=== PATIENT | male | born 1960 | race American Indian/Alaskan Native ===

== ENCOUNTER 2017-08-05 17:28 | Inpatient (IN) | payer MEDICARE, MEDICAID ==
[2017-08-05] MEDS ORDERED: Sodium Chloride 0.9% 1,000 ML IV ONE (18:17)
--- NOTE | 2017-08-05 18:24 | C.PDOC ---
History Of Present Illness <Alice Hoover E - Last Filed: 08/05/17 18:39> <Sabino Desai M - Last Filed: 08/05/17 19:00> Patient is a poor historian Patient is a 57 year old AA with unknown past medical history who presents to the ED via ambulance from a snf with complaints of not feeling well for the past 4 days. Patient admits to headache, visual hallucinations (cannot describe fully what he sees), generalized body shakiness and chills. Patient denies subjective fever, chest pain, palpitations, abdominal pain, nausea and vomiting. Patient is oriented to place, location, date but not year and who the current president is. (Alice Hoover) History Per: Patient History/Exam Limitations: no limitations Onset/Duration Of Symptoms: Days Current Symptoms Are (Timing): Still Present Severity: Mild Pain Scale Rating Of: 0 Additional History Per: Patient <Alice Hoover E - Last Filed: 08/05/17 18:39> <Sabino Desai M - Last Filed: 08/05/17 19:00> Time Seen by Provider: 08/05/17 17:44 Chief Complaint (Nursing): Fever Past Medical History - Medical History PMH: HTN Other Surgeries: S/p SBO surgery 05/2016 Family History: States: Unknown Family Hx - Social History Hx Alcohol Use: No Hx Substance Use: No - Immunization History Hx Influenza Vaccination: No (UNSURE) <Alice Hoover E - Last Filed: 08/05/17 18:39> Vital Signs: Last Vital Signs Temp 103.2 F H 08/05/17 18:25 Pulse 127 H 08/05/17 18:11 Resp 26 H 08/05/17 18:11 BP 135/85 08/05/17 18:11 Pulse Ox 98 08/05/17 18:40 Review Of Systems Constitutional: Positive for: Chills, Malaise Cardiovascular: Negative for: Palpitations, Light Headedness Respiratory: Negative for: Cough, Shortness of Breath, SOB with Excertion Gastrointestinal: Negative for: Nausea, Vomiting, Abdominal Pain, Diarrhea Genitourinary: Negative for: Dysuria, Rash Neurological: Positive for: Confusion, Altered Mental Status <Alice Hoover - Last Filed: 08/05/17 18:39> Physical Exam - Physical Exam Appears: Unkempt, Confused Skin: Normal Color, Dry, No Diaphoretic Head: Atraumatic, Normacephalic Eye(s): bilateral: EOMI Lips: Normal Appearing Cardiovascular: Rhythm Regular (Tacycardia) Respiratory: Normal Breath Sounds, No Decreased Breath Sounds, No Accessory Muscle Use, No Rales, No Rhonchi, Other (poor expiratory and inspiratory effort ) Gastrointestinal/Abdominal: Bowel Sounds, Soft, No Tenderness Back: No CVA Tenderness Extremity: No Tenderness, No Pedal Edema, No Calf Tenderness, No Swelling Extremity: Bilateral: No Pedal Edema, Normal Color And Temperature Pulses: Left Dorsalis Pedis: Normal, Right Dorsalis Pedis: Normal Neurological/Psych: No Oriented x3, Normal Speech Disoriented To: Place <Alice Hoover - Last Filed: 08/05/17 18:39> ED Course And Treatment - Laboratory Results Result Diagrams: 08/05/17 18:29 ECG Rhythm: Sinus Tachycardia Interpretation Of ECG: Minimal voltage criteria for LVH, may be normal variant Rate From EC O2 Sat by Pulse Oximetry: 98 <Alice Hoover - Last Filed: 08/05/17 18:39> - Laboratory Results Result Diagrams: 08/05/17 18:29 08/05/17 18:29 <Sabino Desai - Last Filed: 08/05/17 19:00> Medical Decision Making <Alice Hoover E - Last Filed: 08/05/17 18:39> <Sabino Desai M - Last Filed: 08/05/17 19:00> Medical Decision Making: Meet SIRS criteria * F/u blood culture, urine culture, UA, procalcitonin, ammonia, VBG and rapid influenza, CBC, CMP * F/u chest X-ray and CT abdomen/Pelvis IV contrast * F/u UDS, serum alcohol (Alice Hoover) fever with hx of bowel obstruction, although abdomen is soft, nt, it distended with hypoactive bowel sounds, will order ct abd/pelvis. Case s/o to Dr. Kay at 1900 (Sabino Desai) Disposition - Disposition Disposition Time: 18:40 <Alice Hoover - Last Filed: 08/05/17 18:39> - Disposition Disposition Time: 19:00 <Sabino Desai - Last Filed: 08/05/17 19:00> - Disposition Condition: STABLE Forms: [facility] (Romanian) - Clinical Impression Clinical Impression: Fever Physician Patient Turnover Patient Signed Over To: [place] Kay Handoff Comments: pending labs, imaging, ct scan, reevaluation and disposition <Sabino Desai - Last Filed: 08/05/17 19:00>
[2017-08-05 18:30] LABS: VENOUS BLOOD GAS BASE EXCESS 2.7 mmol/L (0.0-2.0); VENOUS BLOOD GAS PCO2 44 mmHg (40-60); VENOUS BLOOD GAS PO2 13 mm/Hg (30-55); VENOUS BLOOD PH 7.41 (7.32-7.43)
[2017-08-05] MEDS ORDERED: Sodium Chloride 0.9% 1,000 ML ONE (18:32)
[2017-08-05 18:37] LABS: BASO # 0.1 K/uL (0.0-0.2); BASO % 0.6 % (0.0-2.0); EOS % 0.2 % (0.0-4.0); HEMOGLOBIN 12.1 g/dL (12.0-18.0); LYMPH # 1.2 K/uL (1.0-4.3); LYMPH % 10.9 % (20.0-40.0); MEAN CELL VOLUME 90.6 fL (80.0-94.0); MEAN CORPUSCULAR HEMOGLOBIN 29.8 pg (27.0-31.0); MONO # 1.2 K/uL (0.0-0.8); MONO % 10.6 % (0.0-10.0); NEUT # 8.8 K/uL (1.8-7.0); NEUT % 77.7 % (50.0-75.0); RBC 4.04 Mil/uL (4.40-5.90); RED CELL DISTRIBUTION WIDTH 15.6 % (11.5-14.5); WHITE BLOOD COUNT 11.3 K/uL (4.8-10.8)
[2017-08-05 18:49] LABS: ALBUMIN 3.8 g/dL (3.5-5.0); ALT/SGPT 30 U/L (21-72); AST/SGOT 28 U/L (17-59); BLOOD UREA NITROGEN 12 mg/dL (9-20); CALCIUM 8.3 mg/dl (8.6-10.4); GFR AFRICAN-AMERICAN > 60; GFR NON-AFRICAN AMERICAN > 60
[2017-08-05] MEDS ORDERED: Iohexol 300 100 ML IJ ONE (19:03)
[2017-08-05 19:06] LABS: URINE BACTERIA OCC (<OCC); URINE BILIRUBIN NEGATIVE (NEGATIVE); URINE BLOOD 1+ (NEGATIVE); URINE CLARITY Clear (Clear); URINE COLOR Yellow (YELLOW); URINE GLUCOSE (UA) NORMAL (Normal); URINE LEUKOCYTE ESTERASE NEG Leu/uL (Negative); URINE PROTEIN NEGATIVE (NEGATIVE)
[2017-08-05] MEDS ORDERED: Piperacillin/Tazobact 3.375 gm 100 ML IVPB STA (19:07)
[2017-08-05 19:12] LABS: BARBITURATES, UR NEGATIVE (NEGATIVE); BENZODIAZEPINES, UR NEGATIVE (NEGATIVE); OPIATES, UR NEGATIVE (NEGATIVE); PHENCYCLIDINE, UR NEGATIVE (NEGATIVE)
[2017-08-05] MEDS ORDERED: Piperacillin/Tazobact 3.375 gm 100 ML IVPB ONE (19:20)
--- NOTE | 2017-08-05 20:01 | CT ---
EXAM: CT Abdomen and Pelvis With Intravenous Contrast EXAM DATE/TIME: Exam ordered 08/05/2017 6:33 PM CLINICAL HISTORY: 57 years old, male; Pain; Abdominal pain; Generalized; Additional info: S/P sbo surgery; Disention and hypoactive bowels TECHNIQUE: Axial computed tomography images of the abdomen and pelvis with intravenous contrast. All CT scans at this facility use one or more dose reduction techniques, viz.: automated exposure control; ma/kV adjustment per patient size (including targeted exams where dose is matched to indication; i.e. head); or iterative reconstruction technique. Coronal and sagittal reformatted images were created and reviewed. CONTRAST: 100 mL of omnipaque 300 administered intravenously. COMPARISON: No relevant prior studies available. FINDINGS: Lower thorax: Patchy atelectasis/consolidation is noted in the posterior basal segment of the right lower lobe. Patchy pneumonitis is noted in the right middle lobe as well. ABDOMEN: Liver: A low density well-circumscribed mass is noted anterior to the liver measuring 3.3 x 1.4 by 4 cm. there is a 1.3 cm low-density lesion within the medial segment of the left lobe of the liver with a density measurement of 11 H. Gallbladder and bile ducts: Unremarkable. No calcified stones. No ductal dilation. Pancreas: Unremarkable. No mass. No ductal dilation. Spleen: Unremarkable. No splenomegaly. Adrenals: Unremarkable. No mass. Kidneys and ureters: Unremarkable. No solid mass. No hydronephrosis. Stomach and bowel: The colon is markedly distended with stool. Mildly dilated fluid filled small bowel loops are noted within the pelvis. No mucosal thickening. Appendix: No findings to suggest acute appendicitis. PELVIS: Bladder: Unremarkable. No mass. Reproductive: The prostate measures 3 x 4.5 by 2.8 cm. ABDOMEN and PELVIS: Intraperitoneal space: Unremarkable. No free air. No significant fluid collection. Bones/joints: No acute fracture. No dislocation. Soft tissues: Unremarkable. Vasculature: Unremarkable. No abdominal aortic aneurysm. Lymph nodes: Unremarkable. No enlarged lymph nodes. IMPRESSION: 1. The colon is markedly distended and filled with stool. Mild dilatation of several pelvic small bowel loops. The findings suggest ileus. 2. Well circumscribed fluid collection him to the liver. This could represent the loculated ascites or peritoneal inclusion cyst. 3. Hepatic cyst. 4. Patchy atelectasis/consolidation in the posterior basal segment of the right lower lobe. Patchy pneumonitis in the right middle lobe as well
[2017-08-05] MEDS: Dextrose 5%/0.45% NS 1,000 ML IV SCH (21:02)
[2017-08-05] MEDS ORDERED: metroNIDAZOLE IV 500 mg/100 ml 500 MG/100 ML BAG ONE (21:49)
[2017-08-05] MEDS: metroNIDAZOLE IV 500 mg/100 ml 500 MG/100 ML BAG IVPB SCH (21:56)
[2017-08-05 22:29] VITALS: RESP 20
--- NOTE | 2017-08-05 23:44 | CP.PCM.HP ---
History of Present Illness - History of Present Illness History of Present Illness: CC: abdominal pain/ distention x 4 days Patient is a poor historian Patient is a 57 year old AA with unknown past medical history who presents to the ED via ambulance from a longterm with complaints of not feeling well for the past 4 days. Patient admits to headache, visual hallucinations (cannot describe fully what he sees), generalized body shakiness and chills. Patient denies subjective fever, chest pain, palpitations, abdominal pain, nausea and vomiting. Patient is oriented to place, location, date but not year and who the current president is. Present on Admission - Present on Admission Any Indicators Present on Admission: Yes Review of Systems - Review of Systems Systems not reviewed;Unavailable: Acuity of Condition - Constitutional Constitutional: Fatigue, Lethargy, Malaise - Respiratory Respiratory: absent: As Per HPI, Cough, Dyspnea, Hemoptysis, Dyspnea on Exertion , Wheezing, Snoring, Stridor, Pain on Inspiration, Chest Congestion, Excessive Mucous Production, Change in Mucous Color, Pain with Coughing, Other - Gastrointestinal Gastrointestinal: Abdominal Pain, Belching, Bloating, Excessive Flatus - Genitourinary Genitourinary: absent: As Per HPI, Change in Urinary Stream, Difficulty Urinating, Dysuria, Flank Pain, Hematuria, Pyuria, Nocturia, Urinary Incontinence, Urinary Frequency, Urinary Hesitance, Urinary Urgency, Voiding Freq/Small Amts, Freq UTI, Hx Renal/Bladder Calculi, Hx /Renal Surgery, Bladder Distension, Other Past Patient History - Past Social History Smoking Status: Current Some Days Smoker - CARDIAC Hx Hypertension: Yes - GASTROINTESTINAL Hx Gastrointestinal Disorders: Yes Hx Constipation: Yes Other/Comment: BOWEL OBSTRUCTION - PSYCHIATRIC Hx Substance Use: No - SURGICAL HISTORY Hx Surgeries: Yes Other/Comment: ABDOMEN SX MAY 2017 - ANESTHESIA Hx Anesthesia: Yes Hx Anesthesia Reactions: No (UNKNOWN) Meds Allergies/Adverse Reactions: Allergies Allergy/AdvReac Type Severity Reaction Status Date / Time No Known Allergies Allergy Verified 08/05/17 17:37 Physical Exam - Constitutional Appears: No Acute Distress - Head Exam Head Exam: ATRAUMATIC, NORMAL INSPECTION, NORMOCEPHALIC - Eye Exam Eye Exam: EOMI, Normal appearance, PERRL Pupil Exam: NORMAL ACCOMODATION, PERRL - Respiratory Exam Respiratory Exam: Clear to Auscultation Bilateral - Cardiovascular Exam Cardiovascular Exam: REGULAR RHYTHM - GI/Abdominal Exam GI & Abdominal Exam: Diminished Bowel Sounds, Distended Results - Vital Signs Recent Vital Signs: Last Vital Signs Temp 99.5 F 08/05/17 22:18 Pulse 109 H 08/05/17 22:18 Resp 20 08/05/17 22:18 BP 123/75 08/05/17 22:18 Pulse Ox 98 08/05/17 22:18 - Labs Result Diagrams: 08/06/17 08:08 08/06/17 08:08 Labs: Laboratory Results - last 24 hr 08/05/17 08/05/17 08/05/17 18:25 18:29 18:29 WBC 11.3 H RBC 4.04 L Hgb 12.1 Hct 36.6 MCV 90.6 MCH 29.8 MCHC 33.0 RDW 15.6 H Plt Count 256 MPV 9.0 Neut % (Auto) 77.7 H Lymph % (Auto) 10.9 L [place] % (Auto) 10.6 H Eos % (Auto) 0.2 Baso % (Auto) 0.6 Neut # (Auto) 8.8 H Lymph # (Auto) 1.2 [place] # (Auto) 1.2 H Eos # (Auto) 0.0 Baso # (Auto) 0.1 pO2 13 L VBG pH 7.41 VBG pCO2 44 VBG HCO3 24.8 VBG Total CO2 29.3 H VBG O2 Sat (Calc) 23.8 L VBG Base Excess 2.7 H VBG Potassium 4.2 Sodium 140.0 140 Chloride 105.0 102 Glucose 122 H Lactate 2.3 H Potassium 4.2 Carbon Dioxide 24 Anion Gap 18 BUN 12 Creatinine 0.9 Est GFR ( Amer) > 60 Est GFR (Non-Af Amer) > 60 Random Glucose 118 H Calcium 8.3 L Total Bilirubin 0.7 AST 28 ALT 30 Alkaline Phosphatase 84 Ammonia Total Protein 7.6 Albumin 3.8 Globulin 3.8 Albumin/Globulin Ratio 1.0 Procalcitonin Venous Blood Potassium 4.2 Urine Color Urine Clarity Urine pH Ur Specific [place] Urine Protein Urine Glucose (UA) Urine Ketones Urine Blood Urine Nitrate Urine Bilirubin Urine Urobilinogen Ur Leukocyte Esterase Urine WBC (Auto) Urine RBC (Auto) Urine Bacteria Urine Opiates Screen Urine Methadone Screen Ur Barbiturates Screen Ur Phencyclidine Scrn Ur Amphetamines Screen U Benzodiazepines Scrn U Oth Cocaine Metabols U Cannabinoids Screen Alcohol, Quantitative < 10 Influenza Typ A,B (EIA) 08/05/17 08/05/17 08/05/17 18:45 18:53 18:53 WBC RBC Hgb Hct MCV MCH MCHC RDW Plt Count MPV Neut % (Auto) Lymph % (Auto) [place] % (Auto) Eos % (Auto) Baso % (Auto) Neut # (Auto) Lymph # (Auto) [place] # (Auto) Eos # (Auto) Baso # (Auto) pO2 VBG pH VBG pCO2 VBG HCO3 VBG Total CO2 VBG O2 Sat (Calc) VBG Base Excess VBG Potassium Sodium Chloride Glucose Lactate Potassium Carbon Dioxide Anion Gap BUN Creatinine Est GFR ( Amer) Est GFR (Non-Af Amer) Random Glucose Calcium Total Bilirubin AST ALT Alkaline Phosphatase Ammonia 24 Total Protein Albumin Globulin Albumin/Globulin Ratio Procalcitonin Venous Blood Potassium Urine Color Yellow Urine Clarity Clear Urine pH 5.0 Ur Specific [place] 1.018 Urine Protein Negative Urine Glucose (UA) Normal Urine Ketones Negative Urine Blood 1+ H Urine Nitrate Negative Urine Bilirubin Negative Urine Urobilinogen 4.0 Ur Leukocyte Esterase Neg Urine WBC (Auto) < 1 Urine RBC (Auto) 12 H Urine Bacteria Occ H Urine Opiates Screen Negative Urine Methadone Screen Negative Ur Barbiturates Screen Negative Ur Phencyclidine Scrn Negative Ur Amphetamines Screen Negative U Benzodiazepines Scrn Negative U Oth Cocaine Metabols Negative U Cannabinoids Screen Negative Alcohol, Quantitative Influenza Typ A,B (EIA) 08/05/17 08/05/17 Unknown Unknown WBC RBC Hgb Hct MCV MCH MCHC RDW Plt Count MPV Neut % (Auto) Lymph % (Auto) [place] % (Auto) Eos % (Auto) Baso % (Auto) Neut # (Auto) Lymph # (Auto) [place] # (Auto) Eos # (Auto) Baso # (Auto) pO2 VBG pH VBG pCO2 VBG HCO3 VBG Total CO2 VBG O2 Sat (Calc) VBG Base Excess VBG Potassium Sodium Chloride Glucose Lactate Potassium Carbon Dioxide Anion Gap BUN Creatinine Est GFR ( Amer) Est GFR (Non-Af Amer) Random Glucose Calcium Total Bilirubin AST ALT Alkaline Phosphatase Ammonia Total Protein Albumin Globulin Albumin/Globulin Ratio Procalcitonin 0.10 L Venous Blood Potassium Urine Color Urine Clarity Urine pH Ur Specific [place] Urine Protein Urine Glucose (UA) Urine Ketones Urine Blood Urine Nitrate Urine Bilirubin Urine Urobilinogen Ur Leukocyte Esterase Urine WBC (Auto) Urine RBC (Auto) Urine Bacteria Urine Opiates Screen Urine Methadone Screen Ur Barbiturates Screen Ur Phencyclidine Scrn Ur Amphetamines Screen U Benzodiazepines Scrn U Oth Cocaine Metabols U Cannabinoids Screen Alcohol, Quantitative Influenza Typ A,B (EIA) Negative for flu a/b Assessment & Plan (1) Small bowel obstruction Status: Acute (2) Abdominal pain Status: Acute
[2017-08-06] MEDS ORDERED: Piperacill/Tazo 3.375gm in Dex 3.375 GM/50 ML BAG IVPB SCH (01:30)
[2017-08-06] MEDS: Piperacill/Tazo 3.375gm in Dex 3.375 GM/50 ML BAG IVPB SCH ×5 (03:03→21:32)
[2017-08-06] MEDS: metroNIDAZOLE IV 500 mg/100 ml 500 MG/100 ML BAG IVPB SCH ×3 (05:43→22:08)
--- NOTE | 2017-08-06 07:04 | CP.PCM.CON ---
<Chaim De La Cruz - Last Filed: 08/06/17 07:05> History of Present Illness - History of Present Illness History of Present Illness: General Surgery: Dr Lee Pt is a 57M who presents to ED from community skilled nursing. Pt is a poor historian and unable to tell me his PMH or why he lives in a skilled nursing. Pt reports for past four days he has been experiencing fevers, chills, total body aches. Also admits to visual hallucinations though he cannot describe them. General surgery was consulted for abdominal pain. Pt reports he has no abdominal pain, also denies any N/V, diarrhea or constipation. States he cannot remember the last time he moved his bowels. He does agree that his abdomen is more distended than perhaps it usually is. PMH: unknown PSH: unknown Review of Systems - Review of Systems All systems: reviewed and no additional remarkable complaints except (as per hpi ) Past Patient History - Past Medical History & Family History Past Medical History?: Yes - Past Social History Smoking Status: Current Some Days Smoker - CARDIAC Hx Cardiac Disorders: Yes Hx Hypertension: Yes - PULMONARY Hx Respiratory Disorders: No - NEUROLOGICAL Hx Neurological Disorder: No - HEENT Hx HEENT Problems: No - RENAL Hx Chronic Kidney Disease: No - ENDOCRINE/METABOLIC Hx Endocrine Disorders: No - HEMATOLOGICAL/ONCOLOGICAL Hx Blood Disorders: No - INTEGUMENTARY Hx Dermatological Problems: No - MUSCULOSKELETAL/RHEUMATOLOGICAL Hx Musculoskeletal Disorders: No Hx Falls: No - GASTROINTESTINAL Hx Gastrointestinal Disorders: Yes Hx Constipation: Yes Other/Comment: BOWEL OBSTRUCTION - GENITOURINARY/GYNECOLOGICAL Hx Genitourinary Disorders: No - PSYCHIATRIC Hx Psychophysiologic Disorder: No Hx Substance Use: No - SURGICAL HISTORY Hx Surgeries: Yes Other/Comment: ABDOMEN SX MAY 2017 - ANESTHESIA Hx Anesthesia: Yes Hx Anesthesia Reactions: No (UNKNOWN) Meds Allergies/Adverse Reactions: Allergies Allergy/AdvReac Type Severity Reaction Status Date / Time No Known Allergies Allergy Verified 08/05/17 17:37 - Medications Medications: Current Medications Enoxaparin Sodium (Lovenox) 40 mg SC DAILY [facility] Famotidine (Pepcid) 20 mg IVP Q12 [facility] Last Admin: 08/05/17 21:52 Dose: 20 mg Dextrose/Sodium Chloride (Dextrose 5%/0.45% Ns 1000 Ml) 1,000 mls @ 100 mls/hr IV .Q10H [facility] Last Admin: 08/05/17 21:02 Dose: 100 mls/hr Metronidazole (Flagyl) 500 mg in 100 mls @ 100 mls/hr IVPB Q8 [facility] PRN Reason: Protocol Last Admin: 08/06/17 05:43 Dose: 100 mls/hr Piperacillin Sod/Tazobactam Sod (Zosyn 3.375 Gm Iv Premix) 3.375 gm in 50 mls @ 100 mls/hr IVPB Q6H [facility] PRN Reason: Protocol Last Admin: 08/06/17 03:03 Dose: 100 mls/hr Morphine Sulfate (Morphine) 2 mg IVP Q4 PRN PRN Reason: Pain, moderate (4-7) Pneumococcal Polyvalent Vaccine (Pneumovax 23 Vaccine) 0.5 ml IM .ONCE ONE Stop: 08/08/17 10:01 Physical Exam - Constitutional Appears: Non-toxic - ENT Exam ENT Exam: Mucous Membranes Dry - Respiratory Exam Respiratory Exam: absent: Accessory Muscle Use, Respiratory Distress - Cardiovascular Exam Cardiovascular Exam: Tachycardia (100-110), REGULAR RHYTHM - GI/Abdominal Exam GI & Abdominal Exam: Distended, Hypoactive Bowel Sounds, Soft. absent: Tenderness - Neurological Exam Neurological exam: Alert, Oriented x3 - Psychiatric Exam Psychiatric exam: Normal Affect, Normal Mood - Skin Skin Exam: Normal Color, Warm Results - Vital Signs Recent Vital Signs: Last Vital Signs Temp 99.6 F 08/06/17 00:00 Pulse 105 H 08/06/17 00:00 Resp 20 08/06/17 03:09 BP 125/77 08/06/17 00:00 Pulse Ox 99 08/06/17 00:00 - Labs Result Diagrams: 08/05/17 18:29 08/05/17 18:29 Labs: Laboratory Results - last 24 hr 08/05/17 08/05/17 08/05/17 18:25 18:29 18:29 WBC 11.3 H RBC 4.04 L Hgb 12.1 Hct 36.6 MCV 90.6 MCH 29.8 MCHC 33.0 RDW 15.6 H Plt Count 256 MPV 9.0 Neut % (Auto) 77.7 H Lymph % (Auto) 10.9 L Mckenzie % (Auto) 10.6 H Eos % (Auto) 0.2 Baso % (Auto) 0.6 Neut # (Auto) 8.8 H Lymph # (Auto) 1.2 Mckenzie # (Auto) 1.2 H Eos # (Auto) 0.0 Baso # (Auto) 0.1 pO2 13 L VBG pH 7.41 VBG pCO2 44 VBG HCO3 24.8 VBG Total CO2 29.3 H VBG O2 Sat (Calc) 23.8 L VBG Base Excess 2.7 H VBG Potassium 4.2 Sodium 140.0 140 Chloride 105.0 102 Glucose 122 H Lactate 2.3 H Potassium 4.2 Carbon Dioxide 24 Anion Gap 18 BUN 12 Creatinine 0.9 Est GFR ( Amer) > 60 Est GFR (Non-Af Amer) > 60 Random Glucose 118 H Calcium 8.3 L Total Bilirubin 0.7 AST 28 ALT 30 Alkaline Phosphatase 84 Ammonia Total Protein 7.6 Albumin 3.8 Globulin 3.8 Albumin/Globulin Ratio 1.0 Procalcitonin Venous Blood Potassium 4.2 Urine Color Urine Clarity Urine pH Ur Specific Osborn Urine Protein Urine Glucose (UA) Urine Ketones Urine Blood Urine Nitrate Urine Bilirubin Urine Urobilinogen Ur Leukocyte Esterase Urine WBC (Auto) Urine RBC (Auto) Urine Bacteria Urine Opiates Screen Urine Methadone Screen Ur Barbiturates Screen Ur Phencyclidine Scrn Ur Amphetamines Screen U Benzodiazepines Scrn U Oth Cocaine Metabols U Cannabinoids Screen Alcohol, Quantitative < 10 Influenza Typ A,B (EIA) 08/05/17 08/05/17 08/05/17 18:45 18:53 18:53 WBC RBC Hgb Hct MCV MCH MCHC RDW Plt Count MPV Neut % (Auto) Lymph % (Auto) Mckenzie % (Auto) Eos % (Auto) Baso % (Auto) Neut # (Auto) Lymph # (Auto) Mckenzie # (Auto) Eos # (Auto) Baso # (Auto) pO2 VBG pH VBG pCO2 VBG HCO3 VBG Total CO2 VBG O2 Sat (Calc) VBG Base Excess VBG Potassium Sodium Chloride Glucose Lactate Potassium Carbon Dioxide Anion Gap BUN Creatinine Est GFR ( Amer) Est GFR (Non-Af Amer) Random Glucose Calcium Total Bilirubin AST ALT Alkaline Phosphatase Ammonia 24 Total Protein Albumin Globulin Albumin/Globulin Ratio Procalcitonin Venous Blood Potassium Urine Color Yellow Urine Clarity Clear Urine pH 5.0 Ur Specific Osborn 1.018 Urine Protein Negative Urine Glucose (UA) Normal Urine Ketones Negative Urine Blood 1+ H Urine Nitrate Negative Urine Bilirubin Negative Urine Urobilinogen 4.0 Ur Leukocyte Esterase Neg Urine WBC (Auto) < 1 Urine RBC (Auto) 12 H Urine Bacteria Occ H Urine Opiates Screen Negative Urine Methadone Screen Negative Ur Barbiturates Screen Negative Ur Phencyclidine Scrn Negative Ur Amphetamines Screen Negative U Benzodiazepines Scrn Negative U Oth Cocaine Metabols Negative U Cannabinoids Screen Negative Alcohol, Quantitative Influenza Typ A,B (EIA) 08/05/17 08/05/17 Unknown Unknown WBC RBC Hgb Hct MCV MCH MCHC RDW Plt Count MPV Neut % (Auto) Lymph % (Auto) Mckenzie % (Auto) Eos % (Auto) Baso % (Auto) Neut # (Auto) Lymph # (Auto) Mckenzie # (Auto) Eos # (Auto) Baso # (Auto) pO2 VBG pH VBG pCO2 VBG HCO3 VBG Total CO2 VBG O2 Sat (Calc) VBG Base Excess VBG Potassium Sodium Chloride Glucose Lactate Potassium Carbon Dioxide Anion Gap BUN Creatinine Est GFR ( Amer) Est GFR (Non-Af Amer) Random Glucose Calcium Total Bilirubin AST ALT Alkaline Phosphatase Ammonia Total Protein Albumin Globulin Albumin/Globulin Ratio Procalcitonin 0.10 L Venous Blood Potassium Urine Color Urine Clarity Urine pH Ur Specific [place]born Urine Protein Urine Glucose (UA) Urine Ketones Urine Blood Urine Nitrate Urine Bilirubin Urine Urobilinogen Ur Leukocyte Esterase Urine WBC (Auto) Urine RBC (Auto) Urine Bacteria Urine Opiates Screen Urine Methadone Screen Ur Barbiturates Screen Ur Phencyclidine Scrn Ur Amphetamines Screen U Benzodiazepines Scrn U Oth Cocaine Metabols U Cannabinoids Screen Alcohol, Quantitative Influenza Typ A,B (EIA) Negative for flu a/b Assessment & Plan - Assessment and Plan (Free Text) Assessment: 57M with flu-like symptoms and abdominal distension Plan: soap suds enema GI consult NPO IV hydration d/w Dr Rosa De La Cruz, PGY3 <Chino Lee B - Last Filed: 08/06/17 21:37> Meds - Medications Medications: Current Medications Amlodipine Besylate (Norvasc) 5 mg PO DAILY [facility] Bisacodyl (Dulcolax) 10 mg PO Q24H [facility] Last Admin: 08/06/17 11:00 Dose: Not Given Clozapine (Clozaril) 300 mg PO Q12H [facility] Last Admin: 08/06/17 21:28 Dose: Not Given Enoxaparin Sodium (Lovenox) 40 mg SC DAILY [facility] Last Admin: 08/06/17 09:26 Dose: 40 mg Famotidine (Pepcid) 20 mg IVP Q12 [facility] Last Admin: 08/06/17 21:31 Dose: 20 mg Folic Acid (Folic Acid) 1 mg PO DAILY [facility] Last Admin: 08/06/17 17:11 Dose: 1 mg Dextrose/Sodium Chloride (Dextrose 5%/0.45% Ns 1000 Ml) 1,000 mls @ 100 mls/hr IV .Q10H [facility] Last Admin: 08/06/17 08:20 Dose: Not Given Metronidazole (Flagyl) 500 mg in 100 mls @ 100 mls/hr IVPB Q8 [facility] PRN Reason: Protocol Last Admin: 08/06/17 13:30 Dose: 100 mls/hr Piperacillin Sod/Tazobactam Sod (Zosyn 3.375 Gm Iv Premix) 3.375 gm in 50 mls @ 100 mls/hr IVPB Q6H [facility] PRN Reason: Protocol Last Admin: 08/06/17 21:32 Dose: 100 mls/hr Magnesium Citrate (Citrate Of Mag) 60 ml PO TID [facility] Last Admin: 08/06/17 18:10 Dose: Not Given Morphine Sulfate (Morphine) 2 mg IVP Q4 PRN PRN Reason: Pain, moderate (4-7) Pneumococcal Polyvalent Vaccine (Pneumovax 23 Vaccine) 0.5 ml IM .ONCE ONE Stop: 08/08/17 10:01 Propranolol HCl (Inderal) 10 mg PO BID [facility] Last Admin: 08/06/17 18:00 Dose: 10 mg Tiotropium [place] (Spiriva) 18 mcg INH RQ24 [facility] Results - Vital Signs Recent Vital Signs: Last Vital Signs Temp 98.1 F 08/06/17 15:00 Pulse 91 H 08/06/17 15:00 Resp 20 08/06/17 15:00 BP 121/77 08/06/17 15:00 Pulse Ox 97 08/06/17 15:00 - Labs Result Diagrams: 08/06/17 08:08 08/06/17 08:08 Labs: Laboratory Results - last 24 hr 08/06/17 08/06/17 08/06/17 08:08 08:08 14:15 WBC 10.8 RBC 3.53 L Hgb 10.8 L Hct 31.8 L MCV 90.1 MCH 30.5 MCHC 33.9 RDW 15.6 H Plt Count 204 MPV 8.1 PT 14.2 H INR 1.3 APTT 26 Sodium 137 Potassium 3.3 L Chloride 106 Carbon Dioxide 22 Anion Gap 13 BUN 7 L Creatinine 0.8 Est GFR ( Amer) > 60 Est GFR (Non-Af Amer) > 60 Random Glucose 106 Calcium 7.5 L Alpha Fetoprotein Carcinoembryonic Ag CA 19-9 Antigen 08/06/17 08/06/17 14:15 14:15 WBC RBC Hgb Hct MCV MCH MCHC RDW Plt Count MPV PT INR APTT Sodium Potassium Chloride Carbon Dioxide Anion Gap BUN Creatinine Est GFR ( Amer) Est GFR (Non-Af Amer) Random Glucose Calcium Alpha Fetoprotein 2.3 Carcinoembryonic Ag 11.7 H CA 19-9 Antigen 38.4 H Attending/Attestation - Attestation I have personally seen and examined this patient.: Yes I have fully participated in the care of the patient.: Yes I have reviewed all pertinent clinical information: Yes Notes (Text): Pt was seen and examined at bedside Agree with above note and assessment Pt with Abdominal pain and constipation Abdomen : soft, NT Labs and radiology reviewed Ass: severe constipation Plan: enema Po colace NPO, IVF c.w current mx Plan d.w pt and PMD in detail Risk and benefit explained in detail.
--- NOTE | 2017-08-06 07:10 | RAD ---
HISTORY: Fever COMPARISON: No prior. FINDINGS: Patient rotated toward the right. LUNGS: No definitive infiltrate identified bilaterally. PLEURA: No significant pleural effusion identified, no pneumothorax apparent. CARDIOVASCULAR: Normal. OSSEOUS STRUCTURES: No significant abnormalities. VISUALIZED UPPER ABDOMEN: Normal. OTHER FINDINGS: None. IMPRESSION: No definitive infiltrate, pleural effusion or pneumothorax identified.
[2017-08-06 08:16] LABS: HEMOGLOBIN 10.8 g/dL (12.0-18.0); MEAN CELL VOLUME 90.1 fL (80.0-94.0); MEAN CORPUSCULAR HEMOGLOBIN 30.5 pg (27.0-31.0); MEAN CORPUSCULAR HGB CONC 33.9 g/dL (33.0-37.0); MEAN PLATELET VOLUME 8.1 fL (7.2-11.7); RBC 3.53 Mil/uL (4.40-5.90); RED CELL DISTRIBUTION WIDTH 15.6 % (11.5-14.5); WHITE BLOOD COUNT 10.8 K/uL (4.8-10.8)
[2017-08-06] MEDS: Dextrose 5%/0.45% NS 1,000 ML IV SCH ×2 (08:20→22:08)
[2017-08-06 08:32] LABS: BLOOD UREA NITROGEN 7 mg/dL (9-20); CALCIUM 7.5 mg/dl (8.6-10.4); GFR AFRICAN-AMERICAN > 60; GFR NON-AFRICAN AMERICAN > 60
[2017-08-06] MEDS: Enoxaparin 40 mg Syringe SC SCH (09:26)
[2017-08-06] MEDS: Bisacodyl 5mg EC Tab PO SCH (11:00)
--- NOTE | 2017-08-06 12:11 | CARD ---
APPROVED REPORT EKG Measurement Heart [id number] <Conclusion> Sinus tachycardia Minimal voltage criteria for LVH, may be normal variant Borderline ECG
[2017-08-06] MEDS: Magnesium Citrate Oral SOL (300 ml) PO SCH ×2 (13:33→18:10)
[2017-08-06 14:29] LABS: INR 1.3; PROTHROMBIN TIME 14.2 SECONDS (9.7-12.2)
--- NOTE | 2017-08-06 17:05 | CP.PCM.PN ---
<Ashlee Menendez - Last Filed: 08/06/17 17:01> Subjective - Date & Time of Evaluation Date of Evaluation: 08/06/17 Time of Evaluation: 09:00 - Subjective Subjective: Surgery: Dr. Lee Pt seen and examined. No acute overnight events. States he feels ok and doesn't have any complaints. Denies N/V, F/C. States he is hungry. Admits to formed stool this AM. Objective - Vital Signs/Intake and Output Vital Signs (last 24 hours): Temp Pulse Resp BP Pulse Ox 98.1 F 91 H 20 121/77 97 08/06/17 15:00 08/06/17 15:00 08/06/17 15:00 08/06/17 15:00 08/06/17 15:00 Intake and Output: 08/06/17 08/06/17 06:59 18:59 Intake Total 1700 Output Total 2200 Balance -500 - Medications Medications: Current Medications Amlodipine Besylate (Norvasc) 5 mg PO DAILY [facility] Bisacodyl (Dulcolax) 10 mg PO Q24H [facility] Last Admin: 08/06/17 11:00 Dose: Not Given Clozapine (Clozaril) 300 mg PO Q12H [facility] Enoxaparin Sodium (Lovenox) 40 mg SC DAILY [facility] Last Admin: 08/06/17 09:26 Dose: 40 mg Famotidine (Pepcid) 20 mg IVP Q12 [facility] Last Admin: 08/06/17 09:27 Dose: 20 mg Folic Acid (Folic Acid) 1 mg PO DAILY [facility] Dextrose/Sodium Chloride (Dextrose 5%/0.45% Ns 1000 Ml) 1,000 mls @ 100 mls/hr IV .Q10H [facility] Last Admin: 08/06/17 08:20 Dose: Not Given Metronidazole (Flagyl) 500 mg in 100 mls @ 100 mls/hr IVPB Q8 [facility] PRN Reason: Protocol Last Admin: 08/06/17 13:30 Dose: 100 mls/hr Piperacillin Sod/Tazobactam Sod (Zosyn 3.375 Gm Iv Premix) 3.375 gm in 50 mls @ 100 mls/hr IVPB Q6H [facility] PRN Reason: Protocol Last Admin: 08/06/17 14:00 Dose: Not Given Potassium Chloride 20 meq/ (Sodium Chloride) 110 mls @ 50 mls/hr IV Q2 [facility] Stop: 08/06/17 17:59 Last Admin: 08/06/17 13:30 Dose: 50 mls/hr Magnesium Citrate (Citrate Of Mag) 60 ml PO TID [facility] Last Admin: 08/06/17 13:33 Dose: Not Given Morphine Sulfate (Morphine) 2 mg IVP Q4 PRN PRN Reason: Pain, moderate (4-7) Pneumococcal Polyvalent Vaccine (Pneumovax 23 Vaccine) 0.5 ml IM .ONCE ONE Stop: 08/08/17 10:01 Propranolol HCl (Inderal) 10 mg PO BID [facility] Tiotropium [place] (Spiriva) 18 mcg INH RQ24 [facility] - Labs Labs: 08/06/17 08:08 08/06/17 08:08 PT 14.2 SECONDS (9.7-12.2) H 08/06/17 14:15 INR 1.3 08/06/17 14:15 APTT 26 SECONDS (21-34) 08/06/17 14:15 - Constitutional Appears: Well, No Acute Distress - Head Exam Head Exam: ATRAUMATIC, NORMOCEPHALIC - Eye Exam Eye Exam: Normal appearance - ENT Exam ENT Exam: Mucous Membranes Moist - Respiratory Exam Respiratory Exam: NORMAL BREATHING PATTERN - Cardiovascular Exam Cardiovascular Exam: RRR - GI/Abdominal Exam GI & Abdominal Exam: Soft. absent: Distended, Tenderness - Neurological Exam Neurological Exam: Alert, Awake, Oriented x3 - Skin Skin Exam: Dry, Warm Assessment and Plan - Assessment and Plan (Free Text) Assessment: 57M admitted for abdominal pain likely 2/2 constipation Plan: - will give lactulose to further help with constipation - start CLD and will advance slowly - encourage ambulation - d/w Dr. Rosa Menendez, PGY-3 <Chino Lee B - Last Filed: 08/06/17 21:39> Objective - Vital Signs/Intake and Output Vital Signs (last 24 hours): Temp Pulse Resp BP Pulse Ox 98.1 F 91 H 20 121/77 97 08/06/17 15:00 08/06/17 15:00 08/06/17 15:00 08/06/17 15:00 08/06/17 15:00 Intake and Output: 03/14/18 03/15/18 18:59 06:59 Intake Total 1700 Output Total 2200 Balance -500 - Medications Medications: Current Medications Amlodipine Besylate (Norvasc) 5 mg PO DAILY [facility] Bisacodyl (Dulcolax) 10 mg PO Q24H [facility] Last Admin: 08/06/17 11:00 Dose: Not Given Clozapine (Clozaril) 300 mg PO Q12H [facility] Last Admin: 08/06/17 21:28 Dose: Not Given Enoxaparin Sodium (Lovenox) 40 mg SC DAILY [facility] Last Admin: 08/06/17 09:26 Dose: 40 mg Famotidine (Pepcid) 20 mg IVP Q12 [facility] Last Admin: 08/06/17 21:31 Dose: 20 mg Folic Acid (Folic Acid) 1 mg PO DAILY [facility] Last Admin: 08/06/17 17:11 Dose: 1 mg Dextrose/Sodium Chloride (Dextrose 5%/0.45% Ns 1000 Ml) 1,000 mls @ 100 mls/hr IV .Q10H [facility] Last Admin: 08/06/17 08:20 Dose: Not Given Metronidazole (Flagyl) 500 mg in 100 mls @ 100 mls/hr IVPB Q8 [facility] PRN Reason: Protocol Last Admin: 08/06/17 13:30 Dose: 100 mls/hr Piperacillin Sod/Tazobactam Sod (Zosyn 3.375 Gm Iv Premix) 3.375 gm in 50 mls @ 100 mls/hr IVPB Q6H [facility] PRN Reason: Protocol Last Admin: 08/06/17 21:32 Dose: 100 mls/hr Magnesium Citrate (Citrate Of Mag) 60 ml PO TID [facility] Last Admin: 08/06/17 18:10 Dose: Not Given Morphine Sulfate (Morphine) 2 mg IVP Q4 PRN PRN Reason: Pain, moderate (4-7) Pneumococcal Polyvalent Vaccine (Pneumovax 23 Vaccine) 0.5 ml IM .ONCE ONE Stop: 08/08/17 10:01 Propranolol HCl (Inderal) 10 mg PO BID [facility] Last Admin: 08/06/17 18:00 Dose: 10 mg Tiotropium [place] (Spiriva) 18 mcg INH RQ24 [facility] - Labs Labs: 08/06/17 08:08 08/06/17 08:08 PT 14.2 SECONDS (9.7-12.2) H 08/06/17 14:15 INR 1.3 08/06/17 14:15 APTT 26 SECONDS (21-34) 08/06/17 14:15 Attending/Attestation - Attestation I have personally seen and examined this patient.: Yes I have fully participated in the care of the patient.: Yes I have reviewed all pertinent clinical information, including history, physical exam and plan: Yes Notes (Text): Pt was seen and examined at bedside Agree with above note and assessment Pt is improving Had BM after enema Start Po lactulose Advance diet to full liquid diet c.w current mx Plan d.w pt in detail
--- NOTE | 2017-08-06 23:15 | CP.PCM.PN ---
Subjective - Date & Time of Evaluation Date of Evaluation: 08/06/17 Time of Evaluation: 19:15 - Subjective Subjective: Pt was seen and examined at bedside Agree with above note and assessment Pt is improving Had BM after enema Start Po lactulose Advance diet to full liquid diet c.w current mx Plan d.w pt in detail Objective - Vital Signs/Intake and Output Vital Signs (last 24 hours): Temp Pulse Resp BP Pulse Ox 98.1 F 91 H 20 121/77 97 08/06/17 15:00 08/06/17 15:00 08/06/17 15:00 08/06/17 15:00 08/06/17 15:00 Intake and Output: 08/06/17 08/07/17 18:59 06:59 Intake Total 1700 Output Total 2200 Balance -500 - Medications Medications: Current Medications Amlodipine Besylate (Norvasc) 5 mg PO DAILY [facility] Bisacodyl (Dulcolax) 10 mg PO Q24H [facility] Last Admin: 08/06/17 11:00 Dose: Not Given Clozapine (Clozaril) 300 mg PO Q12H [facility] Last Admin: 08/06/17 21:28 Dose: Not Given Enoxaparin Sodium (Lovenox) 40 mg SC DAILY [facility] Last Admin: 08/06/17 09:26 Dose: 40 mg Famotidine (Pepcid) 20 mg IVP Q12 [facility] Last Admin: 08/06/17 21:31 Dose: 20 mg Folic Acid (Folic Acid) 1 mg PO DAILY [facility] Last Admin: 08/06/17 17:11 Dose: 1 mg Dextrose/Sodium Chloride (Dextrose 5%/0.45% Ns 1000 Ml) 1,000 mls @ 100 mls/hr IV .Q10H [facility] Last Admin: 08/06/17 22:08 Dose: 100 mls/hr Metronidazole (Flagyl) 500 mg in 100 mls @ 100 mls/hr IVPB Q8 [facility] PRN Reason: Protocol Last Admin: 08/06/17 22:08 Dose: 100 mls/hr Piperacillin Sod/Tazobactam Sod (Zosyn 3.375 Gm Iv Premix) 3.375 gm in 50 mls @ 100 mls/hr IVPB Q6H [facility] PRN Reason: Protocol Last Admin: 08/06/17 21:32 Dose: 100 mls/hr Magnesium Citrate (Citrate Of Mag) 60 ml PO TID [facility] Last Admin: 08/06/17 18:10 Dose: Not Given Morphine Sulfate (Morphine) 2 mg IVP Q4 PRN PRN Reason: Pain, moderate (4-7) Pneumococcal Polyvalent Vaccine (Pneumovax 23 Vaccine) 0.5 ml IM .ONCE ONE Stop: 08/08/17 10:01 Propranolol HCl (Inderal) 10 mg PO BID [facility] Last Admin: 08/06/17 18:00 Dose: 10 mg Tiotropium [place] (Spiriva) 18 mcg INH RQ24 [facility] - Labs Labs: 08/06/17 08:08 08/06/17 08:08 PT 14.2 SECONDS (9.7-12.2) H 08/06/17 14:15 INR 1.3 08/06/17 14:15 APTT 26 SECONDS (21-34) 08/06/17 14:15 - Constitutional Appears: No Acute Distress - Head Exam Head Exam: ATRAUMATIC, NORMAL INSPECTION, NORMOCEPHALIC - Eye Exam Eye Exam: EOMI, Normal appearance, PERRL Pupil Exam: NORMAL ACCOMODATION, PERRL - Respiratory Exam Respiratory Exam: Clear to Ausculation Bilateral, NORMAL BREATHING PATTERN - Cardiovascular Exam Cardiovascular Exam: REGULAR RHYTHM, +S1, +S2 - GI/Abdominal Exam GI & Abdominal Exam: Distended, Diminished Bowel Sounds - Rectal Exam Rectal Exam: Deferred Assessment and Plan (1) Dehydration Status: Acute (2) Abdominal pain Status: Acute (3) Small bowel obstruction Status: Acute
[2017-08-07] MEDS: Piperacill/Tazo 3.375gm in Dex 3.375 GM/50 ML BAG IVPB SCH ×4 (02:05→21:10)
[2017-08-07] MEDS: Dextrose 5%/0.45% NS 1,000 ML IV SCH ×4 (03:00→22:48)
[2017-08-07] MEDS: metroNIDAZOLE IV 500 mg/100 ml 500 MG/100 ML BAG IVPB SCH ×3 (06:01→22:02)
[2017-08-07 07:28] LABS: HEMOGLOBIN 10.6 g/dL (12.0-18.0); MEAN CELL VOLUME 89.7 fL (80.0-94.0); MEAN CORPUSCULAR HEMOGLOBIN 30.5 pg (27.0-31.0); MEAN PLATELET VOLUME 8.6 fL (7.2-11.7); PLATELET COUNT 216 K/uL (130-400); RBC 3.48 Mil/uL (4.40-5.90); RED CELL DISTRIBUTION WIDTH 15.2 % (11.5-14.5); WHITE BLOOD COUNT 7.2 K/uL (4.8-10.8)
[2017-08-07 07:57] LABS: ALB/GLOB RATIO 0.9 (1.0-2.1); ALT/SGPT 24 U/L (21-72); AST/SGOT 18 U/L (17-59); BLOOD UREA NITROGEN 6 mg/dL (9-20); CALCIUM 7.8 mg/dl (8.6-10.4); GFR AFRICAN-AMERICAN > 60; GFR NON-AFRICAN AMERICAN > 60
[2017-08-07] MEDS ORDERED: Tiotropium 18 mcg Cap For Inhalation INH SCH (08:00)
[2017-08-07 08:05] LABS: ALBUMIN 2.7 g/dL (3.5-5.0)
[2017-08-07] MEDS: Enoxaparin 40 mg Syringe SC SCH (10:04)
[2017-08-07] MEDS: Magnesium Citrate Oral SOL (300 ml) PO SCH ×3 (10:05→18:50)
[2017-08-07] MEDS: Bisacodyl 5mg EC Tab PO SCH (10:09)
--- NOTE | 2017-08-07 10:22 | CP.PCM.PN ---
<Ashlee Menendez - Last Filed: 08/07/17 10:19> Subjective - Date & Time of Evaluation Date of Evaluation: 08/07/17 Time of Evaluation: 10:19 - Subjective Subjective: Surgery: Dr. Lee Pt seen and examined. No acute events overnight. States he feels fine and continues to have BMs. Tolerating liquids & would like more food. Denies N/V, F/ C. Objective - Vital Signs/Intake and Output Vital Signs (last 24 hours): Temp Pulse Resp BP Pulse Ox 98.7 F 63 20 110/73 98 08/07/17 08:00 08/07/17 08:00 08/07/17 08:00 08/07/17 08:00 08/07/17 08:00 Intake and Output: 08/07/17 08/07/17 06:59 18:59 Intake Total 920 Balance 920 - Medications Medications: Current Medications Amlodipine Besylate (Norvasc) 5 mg PO DAILY [facility] Last Admin: 08/07/17 10:04 Dose: 5 mg Bisacodyl (Dulcolax) 10 mg PO Q24H [facility] Last Admin: 08/07/17 10:09 Dose: 10 mg Bisacodyl (Dulcolax) 10 mg PO ONCE ONE Stop: 08/07/17 17:01 Clozapine (Clozaril) 300 mg PO Q12H [facility] Last Admin: 08/06/17 21:28 Dose: Not Given Enoxaparin Sodium (Lovenox) 40 mg SC DAILY [facility] Last Admin: 08/07/17 10:04 Dose: 40 mg Famotidine (Pepcid) 20 mg IVP Q12 [facility] Last Admin: 08/07/17 10:04 Dose: 20 mg Folic Acid (Folic Acid) 1 mg PO DAILY [facility] Last Admin: 08/07/17 10:04 Dose: 1 mg Dextrose/Sodium Chloride (Dextrose 5%/0.45% Ns 1000 Ml) 1,000 mls @ 100 mls/hr IV .Q10H [facility] Last Admin: 08/07/17 10:11 Dose: 100 mls/hr Metronidazole (Flagyl) 500 mg in 100 mls @ 100 mls/hr IVPB Q8 [facility] PRN Reason: Protocol Last Admin: 08/07/17 06:01 Dose: 100 mls/hr Piperacillin Sod/Tazobactam Sod (Zosyn 3.375 Gm Iv Premix) 3.375 gm in 50 mls @ 100 mls/hr IVPB Q6H [facility] PRN Reason: Protocol Last Admin: 08/07/17 08:21 Dose: 100 mls/hr Magnesium Citrate (Citrate Of Mag) 60 ml PO TID [facility] Last Admin: 08/07/17 10:05 Dose: 60 ml Morphine Sulfate (Morphine) 2 mg IVP Q4 PRN PRN Reason: Pain, moderate (4-7) Pneumococcal Polyvalent Vaccine (Pneumovax 23 Vaccine) 0.5 ml IM .ONCE ONE Stop: 08/08/17 10:01 Polyethylene Glycol/Electrolytes (Golytely) 4,000 ml PO ONCE ONE Stop: 08/07/17 13:01 Propranolol HCl (Inderal) 10 mg PO BID [facility] Last Admin: 08/07/17 10:04 Dose: 10 mg Tiotropium [place] (Spiriva) 18 mcg INH RQ24 [facility] Last Admin: 08/07/17 08:28 Dose: 18 mcg - Labs Labs: 08/07/17 07:11 08/07/17 07:11 PT 14.2 SECONDS (9.7-12.2) H 08/06/17 14:15 INR 1.3 08/06/17 14:15 APTT 26 SECONDS (21-34) 08/06/17 14:15 - Constitutional Appears: Well, No Acute Distress - Head Exam Head Exam: ATRAUMATIC, NORMOCEPHALIC - ENT Exam ENT Exam: Mucous Membranes Moist - Respiratory Exam Respiratory Exam: NORMAL BREATHING PATTERN - Cardiovascular Exam Cardiovascular Exam: RRR - GI/Abdominal Exam GI & Abdominal Exam: Soft. absent: Tenderness - Neurological Exam Neurological Exam: Alert, Awake - Skin Skin Exam: Dry, Warm Assessment and Plan - Assessment and Plan (Free Text) Assessment: 57M with abdominal pain likely 2/2 constipation which has now resolved Plan: - ok to advance diet as tolerated - GI on board and plans for scope tomorrow - no surgical intervention at this time - d/w Dr. Rosa Menendez, PGY-3 <Chino Lee - Last Filed: 08/10/17 18:55> Objective - Vital Signs/Intake and Output Vital Signs (last 24 hours): Temp Pulse Resp BP Pulse Ox 98.2 F 78 20 103/59 L 100 08/08/17 00:00 08/08/17 00:00 08/08/17 00:00 08/08/17 00:00 08/08/17 00:00 - Labs Labs: 08/07/17 07:11 08/07/17 07:11 PT 14.2 SECONDS (9.7-12.2) H 08/06/17 14:15 INR 1.3 08/06/17 14:15 APTT 26 SECONDS (21-34) 08/06/17 14:15 Attending/Attestation - Attestation I have personally seen and examined this patient.: Yes I have fully participated in the care of the patient.: Yes I have reviewed all pertinent clinical information, including history, physical exam and plan: Yes Notes (Text): Pt was seen and examined at bedside Agree with above note and assessment Pt with resolving severe constipation and abdominal pain c.w current mx advance diet as tolerated No acute surgical intervention required at present f.u as out pt Plan d.w pt in detail. Risk and benefit explained in detail.
--- NOTE | 2017-08-07 10:54 | PN ---
DATE: LOCATION: [facility], bed B. SUBJECTIVE: This is a 57-year-old male seen initially for GI consultation on 08/06/2017, re-examined again today, appears to be awake, alert, and oriented with reported bowel movement yesterday with less abdominal pain and distention. The entire chart is reviewed including, but not limited to, the most recent lab and radiology study results, current and the previous medication list, current and the previous medical events. Case discussed with the staff at length. Today's lab showed hemoglobin 10.6, hematocrit 31.2. PT was 14.2, low BUN 6, low calcium 7.8, total protein 5.7, albumin 2.7 with excessive increase of CEA level to 11.7 and CA 19-9 to 38.4. Official report of the abdominal and plevic CAT scan again is seen indicative of dilated colon with fecal material with fluid collection of the liver with possible loculated ascites. PHYSICAL EXAMINATION GENERAL: This is a 57-year-old male, awake and alert. Denied any chest pain, palpitation, or significant shortness of breath. VITAL SIGNS: Afebrile, with pulse of 66, respiratory rate of 20 to 22, blood pressure of 114/70. HEENT: Showed pale, dry oral mucous membrane. Nonicteric sclerae. LUNGS: Few scattered crepitations. Decreased air entry at bases. HEART: Positive S1 and S2. ABDOMEN: Soft, bowel sounds are present. No mass or organomegaly. No rebound tenderness or guarding but abdominal distention. EXTREMITIES: With mild lower extremity edematous changes. No clubbing or cyanosis. NEUROLOGIC: No new reported neurological deficits, sensory, or motor. IMPRESSION: 1. Change of bowel movement with probable fecal impaction in the colon. 2. Abnormal CAT scan of the abdomen and pelvis. 3. Elevated carcinoembryonic antigen level, to rule out occult lower gastrointestinal cancer. 4. History of small-bowel obstruction, with status post surgery done in 05/2016. 5. Known history of hypertension. 6. Anemia most likely secondary to the above. SUGGESTIONS: 1. Agree with your plan. 2. Reschedule the patient for colonoscopy at a.m. after adequate preparation. 3. Further recommendations to follow. Lazaro Haywood MD [facility] # [id number]
[2017-08-07 11:06] LABS: LYMPHOCYTE 12 % (20-40); MONOCYTE 10 % (0-10); NEUTROPHIL 78 % (50-75); PLATELET ESTIMATE NORMAL (NORMAL); TOTAL CELLS COUNTED 100
[2017-08-07 11:07] LABS: ANISOCYTOSIS SLIGHT; BURR CELLS SLIGHT; HYPOCHROMIC SLIGHT; OVALOCYTES SLIGHT; POLYCHROMIC SLIGHT; TARGET CELLS SLIGHT
[2017-08-07] MEDS ORDERED: Peg-Electrolyte Oral Soln 4L (Golytely) PO ONE (13:00)
--- NOTE | 2017-08-07 16:10 | PCM.PSYCH ---
Initial Psychiatric Evaluation - Initial Psychiatric Evaluation Type of Admission: Voluntary Legal Status: Capacity Chief Complaint (in patient's own words): "I don't feel well" History of Present Illness and Precipitating Events: Patient is a 57-year-old -[place] male who is single, has no kids, and lives in a detention. Patient denies cocaine, heroin, or alcohol abuse. He never attempted suicide in the past. He is a history of hypertension and schizophrenia and is on 600 mg clozapine daily. Psychiatry was consulted due to patients history. Patient missed his dose of clozapine yesterday and began feeling depressed and anxious. At this time patient is not hearing any voices or experiencing visual hallucinations. He is not delusional but thought disordered. He understands his illness, need for treatment and consequences but he cannot articulate long sentences well. Detox Hx: None Rehab Hx: None Medical Hx: HTN Medications: Clozapine 600mg PO daily, Amlodipine 5mg PO daily Psych Hx: Schizophrenia Fam Hx: None Current Medications: Active Medications Generic Name Dose Route Start Last Admin Trade Name Carl PRN Reason Stop Dose Admin Amlodipine Besylate 5 mg 08/07/17 10:00 08/07/17 10:04 Norvasc PO 5 mg DAILY [facility] Administration Bisacodyl 10 mg 08/06/17 10:45 08/07/17 10:09 Dulcolax PO 10 mg Q24H [facility] Administration Bisacodyl 10 mg 08/07/17 17:00 Dulcolax PO 08/07/17 17:01 ONCE ONE Clozapine 300 mg 08/07/17 18:00 Clozaril PO BID [facility] Enoxaparin Sodium 40 mg 08/06/17 10:00 08/07/17 10:04 Lovenox SC 40 mg DAILY [facility] Administration Famotidine 20 mg 08/05/17 22:00 08/07/17 10:04 Pepcid IVP 20 mg Q12 [facility] Administration Folic Acid 1 mg 08/06/17 15:30 08/07/17 10:04 Folic Acid PO 1 mg DAILY [facility] Administration Dextrose/Sodium Chloride 1,000 mls @ 100 mls/hr 08/05/17 21:00 08/07/17 13:49 Dextrose 5%/0.45% Ns 1000 Ml IV Not Given .Q10H [facility] Metronidazole 500 mg in 100 mls @ 100 mls/hr 08/05/17 22:00 08/07/17 13:49 Flagyl IVPB 100 mls/hr Q8 [facility] Administration Protocol Piperacillin Sod/Tazobactam Sod 3.375 gm in 50 mls @ 100 mls/hr 08/06/17 03: 00 08/07/17 15:13 Zosyn 3.375 Gm Iv Premix IVPB 100 mls/hr Q6H [facility] Administration Protocol Magnesium Citrate 60 ml 08/06/17 14:00 08/07/17 13:52 Citrate Of Mag PO Not Given TID [facility] Morphine Sulfate 2 mg 08/05/17 20:56 Morphine IVP Q4 PRN Pain, moderate (4-7) Pneumococcal Polyvalent Vaccine 0.5 ml 08/08/17 10:00 Pneumovax 23 Vaccine IM 08/08/17 10:01 .ONCE ONE Propranolol HCl 10 mg 08/06/17 18:00 08/07/17 10:04 Inderal PO 10 mg BID [facility] Administration Tiotropium [place] 18 mcg 08/07/17 08:00 08/07/17 08:28 Spiriva INH 18 mcg RQ24 [facility] Administration Past Psychiatric History - Past Psychiatric History Previous Treatment History: Inpatient Pertinent Medical Hx (Current Medical&Sleep Prob, Allergies): Allergies Allergy/AdvReac Type Severity Reaction Status Date / Time No Known Allergies Allergy Verified 08/05/17 17:37 Patient Own Control 08/05/17 Review of Systems - Review of Systems All systems: reviewed and no additional remarkable complaints except - Psychiatric Psychiatric: Abnormal Sleep Pattern, Anxiety, Difficulty Concentrating. absent : Auditory Hallucinations, Hallucinations, Homicidal Ideation, Suicidal Ideation , Visual Hallucinations Mental Status Examination - Personal Presentation Personal Presentation: Looks older than stated age - Affect Affect: Blunted - Motor Activity Motor Activity: Calm - Reliability in Providing Information Reliability in Providing Information: Poor, due to alteration in thoughts - Speech Speech: Disorganized - Mood Mood: Neutral - Formal Thought Process Formal Thought Process: Loosening of associations - Obsessions/Compulsions Obsessions: No Compulsions: No - Cognitive Functions Orientation: Person, Place, Time Sensorium: Alert Attention/Concentration: Easily distracted Abstract Thinking: Marshall Estimate of Intelligence: Below average Judgement: Intact, as evidence by: Insight regarding need for hospitalization Memory: Recent impaired, as evidence by: Inability to recall events of the day, Remote impaired as evidenced by: Inability to recall sig life events - Risk Risk: Diminished functioning - Strength & Assets Inventory Strength & Assets Inventory: Cooperative - Limitations Limitations: Living alone DSM 5 DX - DSM 5 DSM 5 Diagnosis: Chronic schizophrenia - Recommended/Plan of Treatment Treatment Recommendations and Plan of Treatment: Start clozapine 600mg PO daily but 500 mg today as yesterday was skipped. Weekly cbc/diff for Clozapine Clozapine level in 2 days Psychoeducation and support daily Encourage compliance with meds and after care Refer back to his detention and clinic 33 min Prognosis: Good with treatment - Smoking Cessation Smoking Cessation Initiated: No Reason for not providing: Nonsmoker
[2017-08-07 16:38] VITALS: PULSE 78
[2017-08-07] MEDS ORDERED: Bisacodyl 5mg EC Tab PO ONE (17:00)
--- NOTE | 2017-08-07 23:29 | CP.PCM.PN ---
Subjective - Date & Time of Evaluation Date of Evaluation: 08/07/17 Time of Evaluation: 17:35 - Subjective Subjective: PATIENT SEEN AND EVALUATED TODAY Objective - Vital Signs/Intake and Output Vital Signs (last 24 hours): Temp Pulse Resp BP Pulse Ox 98.6 F 78 20 108/72 99 08/07/17 16:00 08/07/17 16:00 08/07/17 16:00 08/07/17 16:00 08/07/17 16:00 Intake and Output: 08/07/17 08/08/17 18:59 06:59 Intake Total 2370 1450 Output Total 1000 800 Balance 1370 650 - Medications Medications: Current Medications Amlodipine Besylate (Norvasc) 5 mg PO DAILY [facility] Last Admin: 08/07/17 10:04 Dose: 5 mg Bisacodyl (Dulcolax) 10 mg PO Q24H [facility] Last Admin: 08/07/17 10:09 Dose: 10 mg Clozapine (Clozaril) 300 mg PO BID [facility] Last Admin: 08/07/17 18:50 Dose: 300 mg Enoxaparin Sodium (Lovenox) 40 mg SC DAILY [facility] Last Admin: 08/07/17 10:04 Dose: 40 mg Famotidine (Pepcid) 20 mg IVP Q12 [facility] Last Admin: 08/07/17 21:54 Dose: 20 mg Folic Acid (Folic Acid) 1 mg PO DAILY [facility] Last Admin: 08/07/17 10:04 Dose: 1 mg Dextrose/Sodium Chloride (Dextrose 5%/0.45% Ns 1000 Ml) 1,000 mls @ 100 mls/hr IV .Q10H [facility] Last Admin: 08/07/17 22:48 Dose: 100 mls/hr Metronidazole (Flagyl) 500 mg in 100 mls @ 100 mls/hr IVPB Q8 [facility] PRN Reason: Protocol Last Admin: 08/07/17 22:02 Dose: 100 mls/hr Piperacillin Sod/Tazobactam Sod (Zosyn 3.375 Gm Iv Premix) 3.375 gm in 50 mls @ 100 mls/hr IVPB Q6H [facility] PRN Reason: Protocol Last Admin: 08/07/17 21:10 Dose: 100 mls/hr Magnesium Citrate (Citrate Of Mag) 60 ml PO TID [facility] Last Admin: 08/07/17 18:50 Dose: 60 ml Morphine Sulfate (Morphine) 2 mg IVP Q4 PRN PRN Reason: Pain, moderate (4-7) Pneumococcal Polyvalent Vaccine (Pneumovax 23 Vaccine) 0.5 ml IM .ONCE ONE Stop: 08/08/17 10:01 Propranolol HCl (Inderal) 10 mg PO BID [facility] Last Admin: 08/07/17 18:55 Dose: 10 mg Tiotropium [place] (Spiriva) 18 mcg INH RQ24 [facility] Last Admin: 08/07/17 08:28 Dose: 18 mcg - Labs Labs: 08/07/17 07:11 08/07/17 07:11 PT 14.2 SECONDS (9.7-12.2) H 08/06/17 14:15 INR 1.3 08/06/17 14:15 APTT 26 SECONDS (21-34) 08/06/17 14:15 Assessment and Plan (1) Dehydration Status: Acute (2) Abdominal pain Status: Acute (3) Small bowel obstruction Status: Acute
[2017-08-08 00:35] VITALS: BP 103/59; TEMP 98.2; O2SAT 100
[2017-08-08] MEDS: Piperacill/Tazo 3.375gm in Dex 3.375 GM/50 ML BAG IVPB SCH ×2 (02:05→10:00)
--- NOTE | 2017-08-08 03:37 | CON ---
DATE: 08/06/[address] Haywood to Dr. Walt Schulz. I was called for GI consultation by the admitting MD. The patient is seen and fully examined on 08/06/2017 as requested by the staff. The entire chart is reviewed including but not limited to the most recent lab and radiology study results, current and the previous medication list, current and the previous medical events, allergy to medication list, as well as all the available current and previous medical records. Case discussed with the admitting medical staff at length. HISTORY OF PRESENT ILLNESS: This is a 57-year-old male who was admitted to the hospital through the emergency [facility] with a complaint of generalized weakness and malaise, not feeling well, constipation, generalized body ache and the reported chills. It has to be mentioned that the patient is a poor historian and all the information was obtained from the medical record, medical staff, nursing staff as well as from ER staff. No reported chest pain or palpitation but abdominal pain, no reported significant shortness of breath or active bleeding but mild nausea with dyspepsia on and off with decreased oral intake. The patient was seen by me as outpatient in my office several months ago, and at that time his colonoscopy failed due to retained fecal material during the colonoscopy with very poor of the colon mucosa at that time. PAST MEDICAL HISTORY: Mainly including hypertension, peptic ulcer disease, internal hemorrhoids. He is status post small bowel surgery as reported before. FAMILY HISTORY: Unknown. SOCIAL HISTORY: No reported recent history of cigarette smoking or alcohol intake. CURRENT MEDICATIONS: Medication list, post admission is reviewed. ALLERGY TO MEDICATIONS: UNCLEAR. LABORATORY DATA: After being admitted to the hospital, the patient was found to have initially leukocytosis of 11.3, with normal hemoglobin and hematocrit, with increased blood glucose level to 118. PHYSICAL EXAMINATION: GENERAL/VITAL SIGNS: A 57-year-old male appeared to be awake, alert with low grade temperature of 100, pulse of 108, respiratory rate 20 to 22, and blood pressure 130/82. HEENT: Show pale dry oral mucoid membrane mildly, nonicteric sclerae. LYMPH NODES: No lymphadenitis or lymphadenopathy. LUNGS: Few scattered crepitation, decreased air entry at bases. HEART: Positive S1 and S2. ABDOMEN: Soft with mild to moderate distention and generalized tenderness. No mass or organomegaly. No rebound tenderness or guarding. RECTAL: The patient refused. EXTREMITIES: Without significant clubbing, cyanosis, or edema. NEUROLOGIC: No reported new neurological deficits, sensory or motor; however, the patient seemed to be slightly and mildly disoriented on rare occasion during the physical examination. IMPRESSION: 1. Change of bowel movement of unclear etiology, rule out occult gastrointestinal malignancy. 2. Leukocytosis of unclear etiology with low-grade fever. 3. Known history of hypertension, peptic ulcer disease as well as status post small bowel obstruction treated surgically in 2017. 4. Hyperglycemia. SUGGESTION: 1. Agree with your plan. 2. Guaiac on the stool daily x3. 3. Cancer markers. 4. Serum lipase, amylase level. 5. Proton pump inhibitors IV. 6. Benadryl tab 1 twice a day. 7. Neurology evaluation with CAT scan of the abdomen, pelvis as well as head CAT scan. 8. Endoscopic evaluation of the lower GI tract after adequate preparation. 9. Further recommendations to follow. Thank you for letting me participate in your patient's case management. Case discussed at length with Dr. Schulz. Lazaro Haywood MD
[2017-08-08] MEDS: metroNIDAZOLE IV 500 mg/100 ml 500 MG/100 ML BAG IVPB SCH (05:15)
[2017-08-08] MEDS: Dextrose 5%/0.45% NS 1,000 ML IV SCH (10:00)
[2017-08-08] MEDS: Enoxaparin 40 mg Syringe SC SCH (10:01)
[2017-08-08] MEDS: Magnesium Citrate Oral SOL (300 ml) PO SCH (10:02)
[2017-08-08] MEDS: Influenza Vaccine 60 mcg/0.5 mL SYR (4YR UP) IM ONE ×2 (10:12→10:20)
[2017-08-08] MEDS: Pneumococcal 23-Valent Vaccine IM ONE ×2 (10:17→10:20)
[2017-08-08] MEDS: Bisacodyl 5mg EC Tab PO SCH (10:27)
--- NOTE | 2017-08-08 16:52 | CP.PCM.PN ---
Subjective - Date & Time of Evaluation Date of Evaluation: 08/08/17 Time of Evaluation: 11:00 - Subjective Subjective: Alert, awake, ambulatory, no acute distress. Objective - Vital Signs/Intake and Output Vital Signs (last 24 hours): Temp Pulse Resp BP Pulse Ox 98.2 F 78 20 103/59 L 100 08/08/17 00:00 08/08/17 00:00 08/08/17 00:00 08/08/17 00:00 08/08/17 00:00 Intake and Output: 08/08/17 08/08/17 06:59 18:59 Intake Total 2250 1250 Output Total 800 775 Balance 1450 475 - Labs Labs: 08/07/17 07:11 08/07/17 07:11 PT 14.2 SECONDS (9.7-12.2) H 08/06/17 14:15 INR 1.3 08/06/17 14:15 APTT 26 SECONDS (21-34) 08/06/17 14:15 Assessment and Plan - Assessment and Plan (Free Text) Assessment: Patient admitted with abdominal pain, constipation, pneumonitis, h/o schizophrenia, seen and examined. Alert, awake, denies any pain .Refused colonoscopy today. Discussed with DR Schulz, plan to discharge back to residential. Advised to follow up with DR Velazquez for outpatient colonoscopy to schedule. Will continue with oral antibiotics for 4 more days. To follow up with PMD in 1 week.
--- NOTE | 2017-08-08 22:09 | PN ---
DATE: LOCATION: [address] [place] [address] B. SUBJECTIVE: This is a 57-year-old male, seen earlier today at rounds as the patient was scheduled for colonoscopy today, but did not finish his preparation. He is not compliant with the preparation at all with recurrent episodes of solid bowel movement for which the colonoscopy is canceled and the patient reported no episode of active bleeding. No nausea or vomiting this morning, reported to have stable vital signs. PHYSICAL EXAMINATION: VITAL SIGNS: Afebrile with pulse of 74, respiratory rate 20 to 22, and blood pressure 110/64. HEENT: Showed dry oral mucous membrane. Nonicteric sclerae. LUNGS: Few scattered crepitations. Decreased air entry at bases. HEART: Positive S1 and S2. ABDOMEN: Soft with slight generalized mild tenderness. No mass or organomegaly. No rebound tenderness or guarding. RECTAL: The patient refused. EXTREMITIES: Without edema, clubbing, or cyanosis. NEUROLOGIC: No reported new neurological deficits, sensory or motor. IMPRESSION: 1. Fecal impaction, most likely leading to what appears to be a dilated colon, with possible ileus versus fecal impaction. 2. Abnormal CAT can of the abdomen and pelvis. 3. Re-excerebration of the peptic ulcer disease. 4. Psychiatry disorder. SUGGESTIONS: 1. Agree with your plan. 2. The patient is to be discharged home and colonoscopy to be scheduled as outpatient. 3. Further recommendations to follow. Lazaor Haywood MD
--- NOTE | 2017-08-08 23:45 | CP.PCM.DIS ---
Provider - Provider Date of Admission: 08/05/17 20:13 Attending physician: Walt Schulz MD Diagnosis - Discharge Diagnosis (1) Dehydration Status: Acute (2) Abdominal pain Status: Acute (3) Small bowel obstruction Status: Acute Hospital Course - Lab Results Lab Results: Micro Results 08/05/17 18:10 Blood-Venous Blood Culture - Preliminary NO GROWTH AFTER 3 DAYS 08/05/17 17:35 Blood-Venous Blood Culture - Preliminary NO GROWTH AFTER 3 DAYS 08/05/17 Unknown Urine,Catheterized Urine Culture - Final No Growth (<1,000 CFU/ML) Most Recent Lab Values WBC 7.2 K/uL (4.8-10.8) 08/07/17 07:11 RBC 3.48 Mil/uL (4.40-5.90) L 08/07/17 07:11 Hgb 10.6 g/dL (12.0-18.0) L 08/07/17 07:11 Hct 31.2 % (35.0-51.0) L 08/07/17 07:11 MCV 89.7 fL (80.0-94.0) 08/07/17 07:11 MCH 30.5 pg (27.0-31.0) 08/07/17 07:11 MCHC 34.0 g/dL (33.0-37.0) 08/07/17 07:11 RDW 15.2 % (11.5-14.5) H 08/07/17 07:11 Plt Count 216 K/uL (130-400) 08/07/17 07:11 MPV 8.6 fL (7.2-11.7) 08/07/17 07:11 Neut % (Auto) 77.7 % (50.0-75.0) H 08/05/17 18:29 Lymph % (Auto) 10.9 % (20.0-40.0) L 08/05/17 18:29 [place] % (Auto) 10.6 % (0.0-10.0) H 08/05/17 18:29 Eos % (Auto) 0.2 % (0.0-4.0) 08/05/17 18:29 Baso % (Auto) 0.6 % (0.0-2.0) 08/05/17 18:29 Neut # (Auto) 8.8 K/uL (1.8-7.0) H 08/05/17 18:29 Lymph # (Auto) 1.2 K/uL (1.0-4.3) 08/05/17 18:29 [place] # (Auto) 1.2 K/uL (0.0-0.8) H 08/05/17 18:29 Eos # (Auto) 0.0 K/uL (0.0-0.7) 08/05/17 18:29 Baso # (Auto) 0.1 K/uL (0.0-0.2) 08/05/17 18:29 Neutrophils % (Manual) 78 % (50-75) H 08/07/17 07:11 Lymphocytes % (Manual) 12 % (20-40) L 08/07/17 07:11 Monocytes % (Manual) 10 % (0-10) 08/07/17 07:11 Platelet Estimate Normal (NORMAL) 08/07/17 07:11 Polychromasia Slight 08/07/17 07:11 Hypochromasia (manual) Slight 08/07/17 07:11 Anisocytosis (manual) Slight 08/07/17 07:11 Target Cells Slight 08/07/17 07:11 Ovalocytes Slight 08/07/17 07:11 [place] Cells Slight 08/07/17 07:11 PT 14.2 SECONDS (9.7-12.2) H 08/06/17 14:15 INR 1.3 08/06/17 14:15 APTT 26 SECONDS (21-34) 08/06/17 14:15 pO2 13 mm/Hg (30-55) L 08/05/17 18:25 VBG pH 7.41 (7.32-7.43) 08/05/17 18:25 VBG pCO2 44 mmHg (40-60) 08/05/17 18:25 VBG HCO3 24.8 mmol/L 08/05/17 18:25 VBG Total CO2 29.3 mmol/L (22-28) H 08/05/17 18:25 VBG O2 Sat (Calc) 23.8 % (40-65) L 08/05/17 18:25 VBG Base Excess 2.7 mmol/L (0.0-2.0) H 08/05/17 18:25 VBG Potassium 4.2 mmol/L (3.6-5.2) 08/05/17 18:25 Sodium 140.0 mmol/l (132-148) 08/05/17 18:25 Chloride 105.0 mmol/L (98-107) 08/05/17 18:25 Glucose 122 mg/dl (75-110) H 08/05/17 18:25 Lactate 2.3 mmol/L (0.7-2.1) H 08/05/17 18:25 Sodium 138 mmol/L (132-148) 08/07/17 07:11 Potassium 3.8 mmol/L (3.6-5.2) 08/07/17 07:11 Chloride 105 mmol/L (98-107) 08/07/17 07:11 Carbon Dioxide 23 mmol/L (22-30) 08/07/17 07:11 Anion Gap 14 (10-20) 08/07/17 07:11 BUN 6 mg/dL (9-20) L 08/07/17 07:11 Creatinine 0.8 mg/dL (0.8-1.5) 08/07/17 07:11 Est GFR ( Amer) > 60 08/07/17 07:11 Est GFR (Non-Af Amer) > 60 08/07/17 07:11 Random Glucose 89 mg/dL (75-110) 08/07/17 07:11 Calcium 7.8 mg/dl (8.6-10.4) L 08/07/17 07:11 Total Bilirubin 0.5 mg/dL (0.2-1.3) 08/07/17 07:11 AST 18 U/L (17-59) 08/07/17 07:11 ALT 24 U/L (21-72) 08/07/17 07:11 Alkaline Phosphatase 69 U/L (38-126) 08/07/17 07:11 Ammonia 24 umol/L (9-33) 08/05/17 18:45 Total Protein 5.7 g/dL (6.3-8.3) L 08/07/17 07:11 Albumin 2.7 g/dL (3.5-5.0) L D 08/07/17 07:11 Globulin 3.1 gm/dL (2.2-3.9) 08/07/17 07:11 Albumin/Globulin Ratio 0.9 (1.0-2.1) L 08/07/17 07:11 Alpha Fetoprotein 2.3 ng/mL (0.0-7.5) 08/06/17 14:15 Carcinoembryonic Ag 11.7 ng/mL (0-3.0) H 08/06/17 14:15 CA 19-9 Antigen 38.4 U/mL (0-37) H 08/06/17 14:15 Procalcitonin 0.10 NG/ML (0.19-0.49) L 08/05/17 Unknown Venous Blood Potassium 4.2 mmol/L (3.6-5.2) 08/05/17 18:25 Urine Color Yellow (YELLOW) 08/05/17 18:53 Urine Clarity Clear (Clear) 08/05/17 18:53 Urine pH 5.0 (5.0-8.0) 08/05/17 18:53 Ur Specific [place] 1.018 (1.003-1.030) 08/05/17 18:53 Urine Protein Negative mg/dL (NEGATIVE) 08/05/17 18:53 Urine Glucose (UA) Normal mg/dL (Normal) 08/05/17 18:53 Urine Ketones Negative mg/dL (NEGATIVE) 08/05/17 18:53 Urine Blood 1+ (NEGATIVE) H 08/05/17 18:53 Urine Nitrate Negative (NEGATIVE) 08/05/17 18:53 Urine Bilirubin Negative (NEGATIVE) 08/05/17 18:53 Urine Urobilinogen 4.0 mg/dL (0.2-1.0) 08/05/17 18:53 Ur Leukocyte Esterase Neg [place]/uL (Negative) 08/05/17 18:53 Urine WBC (Auto) < 1 /hpf (0-5) 08/05/17 18:53 Urine RBC (Auto) 12 /hpf (0-3) H 08/05/17 18:53 Urine Bacteria Occ (<OCC) H 08/05/17 18:53 Urine Opiates Screen Negative (NEGATIVE) 08/05/17 18:53 Urine Methadone Screen Negative (NEGATIVE) 08/05/17 18:53 Ur Barbiturates Screen Negative (NEGATIVE) 08/05/17 18:53 Ur Phencyclidine Scrn Negative (NEGATIVE) 03/13/18 18:53 Ur Amphetamines Screen Negative (NEGATIVE) 08/05/17 18:53 U Benzodiazepines Scrn Negative (NEGATIVE) 08/05/17 18:53 U Oth Cocaine Metabols Negative (NEGATIVE) 08/05/17 18:53 U Cannabinoids Screen Negative (NEGATIVE) 08/05/17 18:53 Alcohol, Quantitative < 10 mg/dl (0-10) 08/05/17 18:29 Influenza Typ A,B (EIA) Negative for flu a/b (NEGATIVE) 08/05/17 Unknown Discharge Exam - Head Exam Head Exam: ATRAUMATIC, NORMOCEPHALIC Discharge Plan - Discharge Medications Prescriptions: Docusate Sodium [Colace] 100 mg PO BID #60 capsule Metronidazole [Flagyl] 500 mg PO TID #12 tablet Propranolol [Inderal] 10 mg PO BID 30 Days tab Cephalexin [cephalexin] 500 mg PO BID 4 Days #8 cap - Follow Up Plan Condition: STABLE Disposition: HOME/ ROUTINE Instructions: Dehydration, Adult (DC), Metronidazole (Systemic), Pneumonia, Adult (DC), Acute Abdomen (Belly Pain), Adult (DC), Small Bowel Obstruction (DC) , Fever, Adult (DC), Cephalexin, Docusate, Propranolol Referrals: Brigido Jolly MD [Staff Provider] - Lazaro Velazquez [Staff Provider] - Walt Schulz MD [Staff Provider] -
== END 2017-08-08 14:11 | disposition home or self-care (01) | DRG 393 ==
LOC: C.ER 17:28 → C.9E 20:13 → C.3T 20:13
PROVIDERS: ADMIT Internal Medicine; ATTEND Internal Medicine
DX: K59.39 Other megacolon (principal); J18.9 Pneumonia, unspecified organism; K56.7 Ileus, unspecified; F20.9 Schizophrenia, unspecified; R18.8 Other ascites; K27.3 Acute peptic ulcer, site unspecified, without hemorrhage or perforation; I10 Essential (primary) hypertension; F17.210 Nicotine dependence, cigarettes, uncomplicated; K56.41 Fecal impaction; D64.9 Anemia, unspecified; E86.0 Dehydration; R73.9 Hyperglycemia, unspecified

== ENCOUNTER 2018-03-15 08:48 | Inpatient (IN) | payer MEDICARE, MEDICAID ==
[2018-03-15 10:26] LABS: BASO % 0.6 % (0.0-2.0); EOS # 0.1 K/uL (0.0-0.7); HEMOGLOBIN 11.8 g/dL (12.0-18.0); LYMPH # 1.1 K/uL (1.0-4.3); LYMPH % 20.9 % (20.0-40.0); MEAN CELL VOLUME 90.8 fL (80.0-94.0); MEAN CORPUSCULAR HEMOGLOBIN 30.1 pg (27.0-31.0); MEAN CORPUSCULAR HGB CONC 33.2 g/dL (33.0-37.0); MEAN PLATELET VOLUME 9.5 fL (7.2-11.7); MONO # 0.5 K/uL (0.0-0.8); MONO % 8.6 % (0.0-10.0); NEUT # 3.6 K/uL (1.8-7.0); NEUT % 67.9 % (50.0-75.0); RBC 3.93 Mil/uL (4.40-5.90); RED CELL DISTRIBUTION WIDTH 16.8 % (11.5-14.5); WHITE BLOOD COUNT 5.3 K/uL (4.8-10.8)
[2018-03-15 11:05] LABS: ALB/GLOB RATIO 1.3 (1.0-2.1); ALBUMIN 3.6 g/dL (3.5-5.0); ALT/SGPT 17 U/L (21-72); AST/SGOT 17 U/L (17-59); BLOOD UREA NITROGEN 22 mg/dL (9-20); CALCIUM 8.6 mg/dl (8.6-10.4); GFR NON-AFRICAN AMERICAN 52; LIPASE 25 U/L (23-300)
[2018-03-15] MEDS ORDERED: Sodium Chloride 0.9% 1,000 ML IV ONE (11:09)
[2018-03-15] MEDS ORDERED: Iodixanol 320 MG/ML 100 ML BOTTLE IV ONE (11:19)
--- NOTE | 2018-03-15 12:16 | CT ---
Date of service: 03/15/2018 PROCEDURE: CT Abdomen and Pelvis with intravenous contrast HISTORY: Left lower quadrant tenderness with abdominal distention COMPARISON: 08/05/2017 TECHNIQUE: Multiple contiguous axial images were performed through the and pelvis with the use of intravenous contrast. Subsequently, sagittal and coronal reformatted images were obtained. Radiation dose: Total exam DLP = 451.78 mGy-cm. This CT exam was performed using one or more of the following dose reduction techniques: Automated exposure control, adjustment of the mA and/or kV according to patient size, and/or use of iterative reconstruction technique. FINDINGS: LOWER THORAX: Patchy atelectasis at the lung bases. LIVER: Well-circumscribed fluid collection anterior to the liver measuring up to 3.6 centimeters. This is of uncertain clinical etiology and may represent a peritoneal inclusion cyst versus loculated ascites versus additional etiology. Multiple scattered hypodensities throughout the liver; for example, on series 2, image 24 measuring 3.2 centimeters demonstrating a Hounsfield unit attenuation of 21, indeterminate. These may be better evaluated with multiphasic CT or MR. GALLBLADDER AND BILE DUCTS: Unremarkable. PANCREAS: Unremarkable. No gross lesion or ductal dilatation. SPLEEN: Diminutive and/or atrophic. ADRENALS: Unremarkable. No mass. KIDNEYS AND URETERS: Scattered hypodensities; for example, in the lower pole of the right kidney measuring 1.4 centimeters demonstrating a Hounsfield unit attenuation of 50 as well as within the upper pole of the left kidney measuring 9 millimeters and a Hounsfield unit attenuation of 29, indeterminate. Again correlation with multiphasic CT may helpful for further evaluation if indicated. VASCULATURE: Atherosclerotic calcification and plaque in the aorta. BOWEL: Again identified is a markedly distended and stool-filled colon. Dilated and distended small bowel loops throughout the abdomen concerning for small bowel obstruction. APPENDIX: Not well identified. No findings to suggest acute appendicitis. PERITONEUM: Unremarkable. No free fluid. No free air. LYMPH NODES: Shotty para-aortic and mesenteric lymph nodes. BLADDER: Mildly thick-walled urinary bladder. REPRODUCTIVE: Unremarkable. Scrotal calcifications noted. BONES: Degenerative changes in the spine. OTHER FINDINGS: None. IMPRESSION: Multiple dilated loops of small bowel seen throughout the abdomen concerning for small bowel obstruction. Marked distention of the colon, filled with stool. Additional findings as above.
[2018-03-15] MEDS ORDERED: metroNIDAZOLE IV 500 mg/100 ml 500 MG/100 ML BAG IVPB STA (12:43)
[2018-03-15 12:57] LABS: SQUAMOUS EPITHIAL < 1 /hpf (0-5); URINE BILIRUBIN NEGATIVE (NEGATIVE); URINE BLOOD NEGATIVE (NEGATIVE); URINE CLARITY Clear (Clear); URINE COLOR Yellow (YELLOW); URINE GLUCOSE (UA) NORMAL (Normal); URINE LEUKOCYTE ESTERASE NEG Leu/uL (Negative); URINE PROTEIN NEGATIVE (NEGATIVE)
[2018-03-15] MEDS ORDERED: cefTRIAXone 1 gm 1 GM/100 ML BAG IVPB ONE (13:11)
[2018-03-15] MEDS ORDERED: metroNIDAZOLE IV 500 mg/100 ml 500 MG/100 ML BAG ONE (13:12)
--- NOTE | 2018-03-15 13:55 | C.PDOC ---
History Of Present Illness 58 years old male brought to ED by EMS from [facility] for evaluation of abdominal pain. Patient is a poor historian and offers no complaints. Noted from past visits that patient has a Hx of small bowel obstruction. Patient has surgi nohemy scar on abdomen but does not know what the surgery was or when. Denies vomiting. Chief Complaint (Nursing): Abdominal Pain History Per: Patient, EMS History/Exam Limitations: no limitations, clinical condition Onset/Duration Of Symptoms: Hrs Current Symptoms Are (Timing): Still Present Location Of Pain/Discomfort: LLQ Radiation Of Pain To:: None Associated Symptoms: denies: Vomiting, Diarrhea Exacerbating Factors: None Alleviating Factors: None Last Bowel Movement: Today Recent travel outside of the [place]: No Past Medical History Reviewed: Historical Data, Nursing Documentation, Vital Signs Vital Signs: Last Vital Signs Temp 97.9 F 03/15/18 13:14 Pulse 82 03/15/18 13:14 Resp 16 03/15/18 13:14 BP 123/83 03/15/18 13:14 Pulse Ox 100 03/15/18 13:14 - Medical History PMH: HTN, Schizophrenia Denies: Chronic Kidney Disease Family History: States: Unknown Family Hx - Social History Hx Alcohol Use: No Hx Substance Use: No - Immunization History Hx Tetanus Toxoid Vaccination: No Hx Influenza Vaccination: No (UNSURE) Hx Pneumococcal Vaccination: No Review Of Systems Constitutional: Negative for: Fever, Chills Gastrointestinal: Positive for: Abdominal Pain. Negative for: Nausea, Vomiting, Diarrhea Skin: Negative for: Rash Neurological: Negative for: Weakness, Numbness Physical Exam - Physical Exam Appears: Non-toxic, No Acute Distress Skin: Normal Color, Warm, Dry, No Rash Head: Atraumatic, Normacephalic Eye(s): bilateral: Normal Inspection, PERRL, EOMI Oral Mucosa: Moist Neck: Normal ROM, Supple Chest: Symmetrical, No Tenderness Cardiovascular: Rhythm Regular, No Murmur Respiratory: Normal Breath Sounds, No Decreased Breath Sounds, No Rales, No Rho nchi, No Wheezing Gastrointestinal/Abdominal: Bowel Sounds (Decreased), Soft, Tenderness (Mild LLQ), Distention, Other (Well healed surgical scar on abdomen ) Extremity: Bilateral: Atraumatic, Normal Color And Temperature, Normal ROM Pulses: Left Radial: Normal, Right Radial: Normal Neurological/Psych: Oriented x3, Normal Speech ED Course And Treatment - Laboratory Results Result Diagrams: 03/15/18 10:03 03/15/18 10:03 O2 Sat by Pulse Oximetry: 100 (RA) Pulse Ox Interpretation: Normal - CT Scan/US CT Abdomen/Pelvis Other Rad Studies (CT/US): Read By Radiologist, Radiology Report Reviewed CT/US Interpretation: Date of service: 03/15/2018. PROCEDURE: CT Abdomen and Pelvis with intravenous contrast. HISTORY: Left lower quadrant tenderness with abdominal distention. COMPARISON: 08/05/2017. TECHNIQUE: Multiple contiguous axial images were performed through the and pelvis with the use of intravenous contrast. Subsequently, sagittal and coronal reformatted images were obtained. Radiation dose: Total exam DLP = 451.78 mGy-cm. This CT exam was performed using one or more of the following dose reduction techniques: Automated exposure control, adjustment of the mA and/or kV according to patient size, and/or use of iterative reconstruction technique. FINDINGS: LOWER THORAX: Patchy atelectasis at the lung bases. LIVER: Well-circumscribed fluid collection anterior to the liver measuring up to 3.6 centimeters. This is of uncertain clinical etiology and may represent a peritoneal inclusion cyst versus loculated ascites versus additional etiology. Multiple scattered hypodensities throughout the liver; for example, on series 2, image 24 measuring 3.2 centimeters demon strating a Hounsfield unit attenuation of 21, indeterminate. These may be better evaluated with multiphasic CT or MR. GALLBLADDER AND BILE DUCTS: Unremarkable. PANCREAS: Unremarkable. No gross lesion or ductal dilatation. SPLEEN: Diminutive and/or atrophic. ADRENALS: Unremarkable. No mass. KIDNEYS AND URETERS: Scattered hypodensities; for example, in the lower pole of the right kidney measuring 1.4 centimeters demonstrating a Hounsfield unit attenuation of 50 as well as within the upper pole of the left kidney measuring 9 millimeters and a Hounsfield unit attenuation of 29, indeterminate. Again correlation with multiphasic CT may helpful for further evaluation if indicated. VASCULATURE: Atherosclerotic calcification and plaque in the aorta. BOWEL: Again identified is a markedly distended and stool-filled colon. Dilated and distended small bowel loops throughout the abdomen concerning for small bowel obstruction. APPENDIX: Not well identified. No findings to suggest acute appendicitis. PERITONEUM: Unremarkable. No free fluid. No free air. LYMPH NODES: Shotty para-aortic and mesenteric lymph nodes. BLADDER: Mildly thick- walled urinary bladder. REPRODUCTIVE: Unremarkable. Scrotal calcifications noted. BONES: Degenerative changes in the spine. OTHER FINDINGS: None. IMPRESSION: Multiple dilated loops of small bowel seen throughout the abdomen concerning for small bowel obstruction. Marked distention of the colon, filled with stool. Additional findings as above. Medical Decision Making Medical Decision Making: Plan: * CT Abdomen/Pelvis * Blood work * Blood Culture * Urine Culture * Urinalysis * Occult Blood * Flagyl * Rocephine * IV Fluids Progress: Spoke with Kwesi Nayak which states patient will be his and will accept his service. Paged surgical assistant, Marilee Suarez with consultation. Called [facility] which states patient's PMD is Dr. Ramandeep Feng; however there was no answer when office was called several times. Disposition - Disposition Disposition: HOSPITALIZED Disposition Time: 12:14 Condition: FAIR - Clinical Impression Clinical Impression: Small bowel obstruction, Abdominal distension - Scribe Statement The provider has reviewed the documentation as recorded by the Scribnisha Paelncia All medical record entries made by the Johnibnisha were at my direction and personally dictated by me. I have reviewed the chart and agree that the record accurately reflects my personal performance of the history, physical exam, medical decision making, and the department course for this patient. I have also personally directed, reviewed, and agree with the discharge instructions and d isposition.
--- NOTE | 2018-03-15 14:10 | CP.PCM.CON ---
<MckenzieSunshine arvizu - Last Filed: 03/15/18 20:52> History of Present Illness - History of Present Illness History of Present Illness: General surgery consult note for Dr. Lee Consulted for bowel obstruction Pt is a poor historian, limiting HPI Pt is a 58M with PMH of schizophrenia and severe constipation and PSH of unknown abdominal surgery in 05/2017 who presented to ED w/abdominal distention. Patient states that he noted he was more distended but denies any pain, nausea, vomiting, fevers, chills, chest pain, melena, hematochezia, or any other symptoms. patient states his last BM was 3 days ago, normal in color and consistency, and that he regularly has a BM only every 3 days. Patient lives at a snf and has had a similar episode in July for which he was admitted and treated with enemas, after which symptoms resolved. Attempted to insert NGT, explaining benefits of inserting and risks of not, but patient refused PMH: schizophrenia, asthma, HTN PSH: Abd surgery of unknown origin May 2017 ALL: NKDA social: smokes tobacco, admits ETOH, denies illicit substances Review of Systems - Review of Systems All systems: reviewed and no additional remarkable complaints except (as per HPI) Past Patient History - Past Medical History & Family History Past Medical History?: Yes Past Family History: Reviewed and not pertinent - Past Social History Smoking Status: Current Some Days Smoker Alcohol: Occasional Drugs: Denies - CARDIAC Hx Hypertension: Yes - PULMONARY Hx Respiratory Disorders: No - NEUROLOGICAL Hx Neurological Disorder: No - HEENT Hx HEENT Problems: No - RENAL Hx Chronic Kidney Disease: No - ENDOCRINE/METABOLIC Hx Endocrine Disorders: No - HEMATOLOGICAL/ONCOLOGICAL Hx Blood Disorders: No - INTEGUMENTARY Hx Dermatological Problems: No - MUSCULOSKELETAL/RHEUMATOLOGICAL Hx Musculoskeletal Disorders: No Hx Falls: No - GASTROINTESTINAL Hx Gastrointestinal Disorders: Yes Hx Constipation: Yes Other/Comment: BOWEL OBSTRUCTION - GENITOURINARY/GYNECOLOGICAL Hx Genitourinary Disorders: No - PSYCHIATRIC Hx Schizophrenia: Yes Hx Substance Use: No - SURGICAL HISTORY Hx Surgeries: Yes Other/Comment: ABDOMEN SX MAY 2017 - ANESTHESIA Hx Anesthesia: Yes Hx Anesthesia Reactions: No (UNKNOWN) Meds Allergies/Adverse Reactions: Allergies Allergy/AdvReac Type Severity Reaction Status Date / Time No Known Allergies Allergy Verified 03/15/18 09:09 - Medications Medications: Current Medications Amlodipine Besylate (Norvasc) 5 mg PO DAILY [facility] Enoxaparin Sodium (Lovenox) 30 mg SC DAILY [facility] Folic Acid (Folic Acid) 1 mg PO DAILY [facility] Sodium Chloride (Sodium Chloride 0.9%) 1,000 mls @ 250 mls/hr IV .Q4H ONE Stop: 03/15/18 15:08 Last Admin: 03/15/18 11:49 Dose: 250 mls/hr Metronidazole (Flagyl) 500 mg in 100 mls @ 100 mls/hr IVPB Q8H [facility]; Protocol Ceftriaxone Sodium 1 gm/ (Sodium Chloride) 100 mls @ 100 mls/hr IVPB Q24H [facility]; Protocol Mineral Oil (Fleet Mineral Oil Enema) 135 ml RC ONCE ONE Stop: 03/15/18 17:01 Mineral Oil (Fleet Mineral Oil Enema) 135 ml RC ONCE ONE Stop: 03/16/18 06:01 Propranolol HCl (Inderal) 10 mg PO BID [facility] Tiotropium [place] (Spiriva) 18 mcg INH RQ24 [facility] Physical Exam - Constitutional Appears: Well, Non-toxic, No Acute Distress - Head Exam Head Exam: ATRAUMATIC, NORMOCEPHALIC - Eye Exam Eye Exam: Normal appearance. absent: Conjunctival injection, Scleral icterus - ENT Exam ENT Exam: Mucous Membranes Moist, Normal Oropharynx - Respiratory Exam Respiratory Exam: NORMAL BREATHING PATTERN. absent: Accessory Muscle Use, Respiratory Distress - Cardiovascular Exam Cardiovascular Exam: RRR - GI/Abdominal Exam GI & Abdominal Exam: Distended (severe), Soft. absent: Guarding, Hernia, Rebound, Tenderness Additional comments: midline surgical scar - Rectal Exam Rectal Exam: Fecal Impaction. absent: Hemorrhoids Additional comments: normal color hard stool - Extremities Exam Extremities exam: Positive for: pedal pulses present. Negative for: calf t enderness, pedal edema - Neurological Exam Neurological exam: Alert, Oriented x3 - Psychiatric Exam Psychiatric exam: Flat Affect, Normal Mood - Skin Skin Exam: Dry, Normal Color, Warm Results - Vital Signs Recent Vital Signs: Last Vital Signs Temp 97.9 F 03/15/18 13:14 Pulse 82 03/15/18 13:14 Resp 16 03/15/18 13:14 BP 123/83 03/15/18 13:14 Pulse Ox 100 03/15/18 14:09 - Labs Result Diagrams: 03/15/18 10:03 10/21/18 10:03 Labs: Laboratory Results - last 24 hr 03/15/18 03/15/18 03/15/18 10:03 10:03 12:41 WBC 5.3 RBC 3.93 L Hgb 11.8 L Hct 35.7 MCV 90.8 MCH 30.1 MCHC 33.2 RDW 16.8 H Plt Count 163 MPV 9.5 Neut % (Auto) 67.9 Lymph % (Auto) 20.9 [place] % (Auto) 8.6 Eos % (Auto) 2.0 Baso % (Auto) 0.6 Neut # (Auto) 3.6 Lymph # (Auto) 1.1 [place] # (Auto) 0.5 Eos # (Auto) 0.1 Baso # (Auto) 0.0 Sodium 138 Potassium 4.3 Chloride 105 Carbon Dioxide 22 Anion Gap 16 BUN 22 H Creatinine 1.4 Est GFR ( Amer) > 60 Est GFR (Non-Af Amer) 52 Random Glucose 177 H Calcium 8.6 Total Bilirubin 0.5 AST 17 ALT 17 L D Alkaline Phosphatase 73 Total Protein 6.3 Albumin 3.6 Globulin 2.8 Albumin/Globulin Ratio 1.3 Lipase 25 Urine Color Yellow Urine Clarity Clear Urine pH 5.0 Ur Specific [place] 1.020 Urine Protein Negative Urine Glucose (UA) Normal Urine Ketones Trace Urine Blood Negative Urine Nitrate Negative Urine Bilirubin Negative Urine Urobilinogen 2.0 Ur Leukocyte Esterase Neg Urine WBC (Auto) < 1 Urine RBC (Auto) 3 Ur Squamous Epith Cells < 1 Stool Occult Blood 03/15/18 13:31 WBC RBC Hgb Hct MCV MCH MCHC RDW Plt Count MPV Neut % (Auto) Lymph % (Auto) [place] % (Auto) Eos % (Auto) Baso % (Auto) Neut # (Auto) Lymph # (Auto) [place] # (Auto) Eos # (Auto) Baso # (Auto) Sodium Potassium Chloride Carbon Dioxide Anion Gap BUN Creatinine Est GFR ( Amer) Est GFR (Non-Af Amer) Random Glucose Calcium Total Bilirubin AST ALT Alkaline Phosphatase Total Protein Albumin Globulin Albumin/Globulin Ratio Lipase Urine Color Urine Clarity Urine pH Ur Specific [place] Urine Protein Urine Glucose (UA) Urine Ketones Urine Blood Urine Nitrate Urine Bilirubin Urine Urobilinogen Ur Leukocyte Esterase Urine WBC (Auto) Urine RBC (Auto) Ur Squamous Epith Cells Stool Occult Blood Negative Assessment & Plan - Assessment and Plan (Free Text) Assessment: 58M with severe constipation and small bowel ileus Plan: NPO IVF enemas F/U HOBT Daily BMP, mag, phos replete electrolytes as needed Encourage ambulation No surgical intervention indicated at this time, will continue to monitor Discussed with Dr. Lee, who agrees with above Sunshine Mckenzie, PGY2 <Chino Lee - Last Filed: 03/16/18 17:38> Meds - Medications Medications: Current Medications Amlodipine Besylate (Norvasc) 5 mg PO DAILY [facility] Last Admin: 03/16/18 12:00 Dose: 5 mg Enoxaparin Sodium (Lovenox) 30 mg SC DAILY [facility] Last Admin: 03/16/18 11:59 Dose: 30 mg Folic Acid (Folic Acid) 1 mg PO DAILY [facility] Last Admin: 03/16/18 12:00 Dose: 1 mg Ceftriaxone Sodium 1 gm/ (Sodium Chloride) 100 mls @ 100 mls/hr IVPB Q24H [facility]; Protocol Last Admin: 03/16/18 13:50 Dose: 100 mls/hr Metronidazole (Flagyl) 500 mg in 100 mls @ 100 mls/hr IVPB Q8H [facility]; Protocol Last Admin: 03/16/18 13:51 Dose: 100 mls/hr Dextrose/Sodium Chloride (Dextrose 5%/0.9% Ns 1000 Ml) 1,000 mls @ 150 mls/hr IV .Q6H40M ONE Stop: 03/16/18 23:44 Propranolol HCl (Inderal) 10 mg PO BID [facility] Last Admin: 03/16/18 12:03 Dose: 10 mg Tiotropium [place] (Spiriva) 18 mcg INH RQ24 [facility] Last Admin: 03/16/18 07:59 Dose: 18 mcg Results - Vital Signs Recent Vital Signs: Last Vital Signs Temp 98 F 03/16/18 16:00 Pulse 79 03/16/18 16:00 Resp 20 03/16/18 16:00 BP 126/83 03/16/18 16:00 Pulse Ox 97 03/16/18 16:00 - Labs Result Diagrams: 03/16/18 07:47 03/16/18 07:47 Labs: Laboratory Results - last 24 hr 03/16/18 03/16/18 07:47 07:47 WBC 5.1 RBC 3.83 L Hgb 11.5 L Hct 34.9 L MCV 91.1 MCH 29.9 MCHC 32.9 L RDW 16.6 H Plt Count 141 MPV 9.4 Sodium 138 Potassium 4.7 Chloride 107 Carbon Dioxide 21 L Anion Gap 15 BUN 13 Creatinine 0.9 Est GFR ( Amer) > 60 Est GFR (Non-Af Amer) > 60 Random Glucose 69 L Calcium 8.1 L Phosphorus 2.9 Magnesium 1.9 Attending/Attestation - Attestation I have personally seen and examined this patient.: Yes I have fully participated in the care of the patient.: Yes I have reviewed all pertinent clinical information: Yes Notes (Text): Pt was seen and examined at bedside Agree with above note and assessment Pt with severe constipation and abdominal distension Abdomen: Soft, distended, No guarding or rebound Labs and Radiology reviewed Ass: Severe constipation and ileus Plan : NPO, IVF Fleet Enema C/w current mx AXR in am Plan d.w pt in detail Risk and benefit explained in detail.
[2018-03-15] MEDS ORDERED: metroNIDAZOLE IV 500 mg/100 ml 500 MG/100 ML BAG IVPB SCH (14:30)
[2018-03-15] MEDS ORDERED: Mineral Oil Enema 135 ml RC ONE (17:00)
[2018-03-15] MEDS: Sodium Chloride 0.9% 1,000 ML IV SCH (21:00)
[2018-03-15] MEDS: metroNIDAZOLE IV 500 mg/100 ml 500 MG/100 ML BAG IVPB SCH (21:31)
--- NOTE | 2018-03-15 21:45 | CP.PCM.HP ---
Past Patient History - Past Medical History & Family History Past Medical History?: Yes Past Family History: Reviewed and not pertinent - Past Social History Smoking Status: Current Some Days Smoker Alcohol: Occasional Drugs: Denies - CARDIAC Hx Hypertension: Yes - PULMONARY Hx Respiratory Disorders: No - NEUROLOGICAL Hx Neurological Disorder: No - HEENT Hx HEENT Problems: No - RENAL Hx Chronic Kidney Disease: No - ENDOCRINE/METABOLIC Hx Endocrine Disorders: No - HEMATOLOGICAL/ONCOLOGICAL Hx Blood Disorders: No - INTEGUMENTARY Hx Dermatological Problems: No - MUSCULOSKELETAL/RHEUMATOLOGICAL Hx Musculoskeletal Disorders: No Hx Falls: No - GASTROINTESTINAL Hx Gastrointestinal Disorders: Yes Hx Constipation: Yes Other/Comment: BOWEL OBSTRUCTION - GENITOURINARY/GYNECOLOGICAL Hx Genitourinary Disorders: No - PSYCHIATRIC Hx Schizophrenia: Yes Hx Substance Use: No - SURGICAL HISTORY Hx Surgeries: Yes Other/Comment: ABDOMEN SX MAY 2017 - ANESTHESIA Hx Anesthesia: Yes Hx Anesthesia Reactions: No (UNKNOWN) Meds Allergies/Adverse Reactions: Allergies Allergy/AdvReac Type Severity Reaction Status Date / Time No Known Allergies Allergy Verified 03/15/18 09:09 Results - Vital Signs Recent Vital Signs: Last Vital Signs Temp 97.9 F 03/15/18 13:14 Pulse 82 03/15/18 13:14 Resp 16 03/15/18 13:14 BP 123/83 03/15/18 13:14 Pulse Ox 100 03/15/18 18:34 - Labs Result Diagrams: 03/15/18 10:03 03/15/18 10:03 Labs: Laboratory Results - last 24 hr 03/15/18 03/15/18 03/15/18 10:03 10:03 10:03 WBC 5.3 RBC 3.93 L Hgb 11.8 L Hct 35.7 MCV 90.8 MCH 30.1 MCHC 33.2 RDW 16.8 H Plt Count 163 MPV 9.5 Neut % (Auto) 67.9 Lymph % (Auto) 20.9 [place] % (Auto) 8.6 Eos % (Auto) 2.0 Baso % (Auto) 0.6 Neut # (Auto) 3.6 Lymph # (Auto) 1.1 [place] # (Auto) 0.5 Eos # (Auto) 0.1 Baso # (Auto) 0.0 Sodium 138 Potassium 4.3 Chloride 105 Carbon Dioxide 22 Anion Gap 16 BUN 22 H Creatinine 1.4 Est GFR ( Amer) > 60 Est GFR (Non-Af Amer) 52 Random Glucose 177 H Calcium 8.6 Phosphorus 3.0 Magnesium 2.3 Total Bilirubin 0.5 AST 17 ALT 17 L D Alkaline Phosphatase 73 Total Protein 6.3 Albumin 3.6 Globulin 2.8 Albumin/Globulin Ratio 1.3 Lipase 25 Urine Color Urine Clarity Urine pH Ur Specific [place] Urine Protein Urine Glucose (UA) Urine Ketones Urine Blood Urine Nitrate Urine Bilirubin Urine Urobilinogen Ur Leukocyte Esterase Urine WBC (Auto) Urine RBC (Auto) Ur Squamous Epith Cells Stool Occult Blood 03/15/18 03/15/18 12:41 13:31 WBC RBC Hgb Hct MCV MCH MCHC RDW Plt Count MPV Neut % (Auto) Lymph % (Auto) [place] % (Auto) Eos % (Auto) Baso % (Auto) Neut # (Auto) Lymph # (Auto) [place] # (Auto) Eos # (Auto) Baso # (Auto) Sodium Potassium Chloride Carbon Dioxide Anion Gap BUN Creatinine Est GFR ( Amer) Est GFR (Non-Af Amer) Random Glucose Calcium Phosphorus Magnesium Total Bilirubin AST ALT Alkaline Phosphatase Total Protein Albumin Globulin Albumin/Globulin Ratio Lipase Urine Color Yellow Urine Clarity Clear Urine pH 5.0 Ur Specific [place] 1.020 Urine Protein Negative Urine Glucose (UA) Normal Urine Ketones Trace Urine Blood Negative Urine Nitrate Negative Urine Bilirubin Negative Urine Urobilinogen 2.0 Ur Leukocyte Esterase Neg Urine WBC (Auto) < 1 Urine RBC (Auto) 3 Ur Squamous Epith Cells < 1 Stool Occult Blood Negative
[2018-03-16] MEDS: Sodium Chloride 0.9% 1,000 ML IV SCH ×2 (03:22→12:06)
[2018-03-16] MEDS: metroNIDAZOLE IV 500 mg/100 ml 500 MG/100 ML BAG IVPB SCH ×3 (05:45→21:32)
[2018-03-16] MEDS ORDERED: Mineral Oil Enema 135 ml RC ONE ×2 (06:00→11:00)
[2018-03-16 06:15] VITALS: RESP 20
[2018-03-16 07:52] LABS: HEMOGLOBIN 11.5 g/dL (12.0-18.0); MEAN CELL VOLUME 91.1 fL (80.0-94.0); MEAN CORPUSCULAR HEMOGLOBIN 29.9 pg (27.0-31.0); MEAN CORPUSCULAR HGB CONC 32.9 g/dL (33.0-37.0); MEAN PLATELET VOLUME 9.4 fL (7.2-11.7); RBC 3.83 Mil/uL (4.40-5.90); RED CELL DISTRIBUTION WIDTH 16.6 % (11.5-14.5); WHITE BLOOD COUNT 5.1 K/uL (4.8-10.8)
[2018-03-16] MEDS: Tiotropium 18 mcg Cap For Inhalation INH SCH (07:59)
[2018-03-16 08:34] LABS: BLOOD UREA NITROGEN 13 mg/dL (9-20); CALCIUM 8.1 mg/dl (8.6-10.4); GFR NON-AFRICAN AMERICAN > 60
[2018-03-16] MEDS ORDERED: Peg-Electrolyte Oral Soln 4L (Golytely) PO ONE (10:30)
[2018-03-16] MEDS: Enoxaparin 30 mg Syringe SC SCH (11:59)
--- NOTE | 2018-03-16 13:12 | RAD ---
Date of service: 03/16/2018 HISTORY: eval distension of colon COMPARISON: 03/15/2018 CT abdomen and pelvis. FINDINGS: BOWEL: Colonic distension. No mechanical obstructing lesion identified. Thumbprinting, edema of the wall of the small bowel. Similar findings identified and I do not seen with a greater degree of clarity on the recent CT scan of the abdomen and pelvis. BONES: Normal. OTHER FINDINGS: None. IMPRESSION: No visible free air.
--- NOTE | 2018-03-16 14:26 | PN ---
DATE: 03/16/2018 LOCATION: 351, bed B. SUBJECTIVE: This is a 58-year-old male seen initially for GI consultation on 03/15/2018 as requested by the admitting MD, reexamined again today with the staff in the floor, with reported large bowel movement late yesterday without any evidence of active bleeding. The patient is unable to give any accurate history or details. The entire chart is reviewed including but not limited to the most recent lab and radiology study results, current and the previous medication list, current and the previous medical events and today's lab results showed hemoglobin of 11.5, hematocrit 39.9 with normal white blood cells, CO2 content of 21 and reported episode of hypoglycemia of 69 with low calcium 8.1. The official CAT scan of the abdomen and pelvis is seen. The patient had abdominal x-ray today. No official report yet. PHYSICAL EXAMINATION: GENERAL: A 58-year-old male. VITAL SIGNS: Afebrile with pulse of 84, respiratory rate 20 to 22 with blood pressure of 128/78. HEENT: Showed pale, dry mucous membrane. Nonicteric sclerae. LUNGS: Few scattered crepitation. Decreased air entry at bases. HEART: Positive S1 and S2. ABDOMEN: Soft with moderate distention with hypoactive bowel sounds. No mass or organomegaly could be appreciated. RECTAL: The patient refused. EXTREMITIES: No significant clubbing, cyanosis or edema. CENTRAL NERVOUS SYSTEM: No reported new neurological deficits, sensory or motor. IMPRESSION: 1. Intermittent period of small bowel obstruction. 2. Known history of hypertension, schizophrenia, and peptic ulcer disease. 3. Anemia, most likely secondary to above. 4. Known history of constipation, through the patient's office visits to my office before. SUGGESTIONS: 1. Continue current management. 2. Oil retention enemas. 3. Surgical followup. Further recommendation to follow. Lazaro Haywodo MD
[2018-03-16] MEDS ORDERED: Dextrose 5%/0.9% NS 1,000 ML IV ONE (17:05)
--- NOTE | 2018-03-16 18:26 | CP.PCM.PN ---
<Chaim De La Cruz Olaf - Last Filed: 03/16/18 18:23> Subjective - Date & Time of Evaluation Date of Evaluation: 03/16/18 Time of Evaluation: 06:45 - Subjective Subjective: General Surgery: Dr Lee Pt S&E. CLAIRE. Multiple BMs s/p enemas. Abdomen less distended. Pain improved. Denies n/v, f/c. Objective - Vital Signs/Intake and Output Vital Signs (last 24 hours): Temp Pulse Resp BP Pulse Ox 98 F 79 20 126/83 97 03/16/18 16:00 03/16/18 16:00 03/16/18 16:00 03/16/18 16:00 03/16/18 16:00 Intake and Output: 03/16/18 03/16/18 06:59 18:59 Intake Total 2350 Output Total 800 Balance 1550 - Medications Medications: Current Medications Amlodipine Besylate (Norvasc) 5 mg PO DAILY [facility] Last Admin: 03/16/18 12:00 Dose: 5 mg Enoxaparin Sodium (Lovenox) 30 mg SC DAILY [facility] Last Admin: 03/16/18 11:59 Dose: 30 mg Folic Acid (Folic Acid) 1 mg PO DAILY [facility] Last Admin: 03/16/18 12:00 Dose: 1 mg Ceftriaxone Sodium 1 gm/ (Sodium Chloride) 100 mls @ 100 mls/hr IVPB Q24H [facility]; Protocol Last Admin: 03/16/18 13:50 Dose: 100 mls/hr Metronidazole (Flagyl) 500 mg in 100 mls @ 100 mls/hr IVPB Q8H [facility]; Protocol Last Admin: 03/16/18 13:51 Dose: 100 mls/hr Dextrose/Sodium Chloride (Dextrose 5%/0.9% Ns 1000 Ml) 1,000 mls @ 150 mls/hr IV .Q6H40M ONE Stop: 03/16/18 23:44 Propranolol HCl (Inderal) 10 mg PO BID [facility] Last Admin: 03/16/18 12:03 Dose: 10 mg Tiotropium [place] (Spiriva) 18 mcg INH RQ24 [facility] Last Admin: 03/16/18 07:59 Dose: 18 mcg - Labs Labs: 03/16/18 07:47 03/16/18 07:47 - Constitutional Appears: Non-toxic, No Acute Distress - ENT Exam ENT Exam: Mucous Membranes Dry - Respiratory Exam Respiratory Exam: absent: Respiratory Distress - Cardiovascular Exam Cardiovascular Exam: REGULAR RHYTHM. absent: Tachycardia - GI/Abdominal Exam GI & Abdominal Exam: Soft. absent: Distended, Tenderness Assessment and Plan - Assessment and Plan (Free Text) Assessment: 58M with chronic constipation Plan: continue enemas PRN will give go lytely to aide in clearing out remaining constipation will likely require d/c with stool softeners and colonic stimulants no plans for surgical intervention reconsult PRN d/w Dr Rosa De La Cruz, PGY4 <Chino Lee B - Last Filed: 03/16/18 19:14> Objective - Vital Signs/Intake and Output Vital Signs (last 24 hours): Temp Pulse Resp BP Pulse Ox 98 F 79 20 126/83 97 03/16/18 16:00 03/16/18 16:00 03/16/18 16:00 03/16/18 16:00 03/16/18 16:00 Intake and Output: 03/16/18 03/17/18 18:59 06:59 Intake Total 2350 Output Total 800 Balance 1550 - Medications Medications: Current Medications Amlodipine Besylate (Norvasc) 5 mg PO DAILY [facility] Last Admin: 03/16/18 12:00 Dose: 5 mg Enoxaparin Sodium (Lovenox) 30 mg SC DAILY [facility] Last Admin: 03/16/18 11:59 Dose: 30 mg Folic Acid (Folic Acid) 1 mg PO DAILY [facility] Last Admin: 03/16/18 12:00 Dose: 1 mg Ceftriaxone Sodium 1 gm/ (Sodium Chloride) 100 mls @ 100 mls/hr IVPB Q24H [facility]; Protocol Last Admin: 03/16/18 13:50 Dose: 100 mls/hr Metronidazole (Flagyl) 500 mg in 100 mls @ 100 mls/hr IVPB Q8H [facility]; Protocol Last Admin: 03/16/18 13:51 Dose: 100 mls/hr Dextrose/Sodium Chloride (Dextrose 5%/0.9% Ns 1000 Ml) 1,000 mls @ 150 mls/hr IV .Q6H40M ONE Stop: 03/16/18 23:44 Propranolol HCl (Inderal) 10 mg PO BID [facility] Last Admin: 03/16/18 12:03 Dose: 10 mg Tiotropium [place] (Spiriva) 18 mcg INH RQ24 [facility] Last Admin: 03/16/18 07:59 Dose: 18 mcg - Labs Labs: 03/16/18 07:47 03/16/18 07:47 Attending/Attestation - Attestation I have personally seen and examined this patient.: Yes I have fully participated in the care of the patient.: Yes I have reviewed all pertinent clinical information, including history, physical exam and plan: Yes Notes (Text): Pt was seen and examined at bedside Agree with above note and assessment Pt had multiple bowel movements No c/o abdominal Pain Golytely PO Advance diet as tolerated No General surgical intervention required at present c.w current mx Plan d.w pt in detail Risk and benefit explained in detail.
--- NOTE | 2018-03-16 23:54 | CP.PCM.PN ---
Subjective - Subjective Subjective: dictated Objective - Vital Signs/Intake and Output Vital Signs (last 24 hours): Temp Pulse Resp BP Pulse Ox 98 F 79 20 126/83 97 03/16/18 16:00 03/16/18 16:00 03/16/18 16:00 03/16/18 16:00 03/16/18 16:00 Intake and Output: 03/16/18 03/17/18 18:59 06:59 Intake Total 2350 1100 Output Total 800 Balance 1550 1100 - Medications Medications: Current Medications Amlodipine Besylate (Norvasc) 5 mg PO DAILY [facility] Last Admin: 03/16/18 12:00 Dose: 5 mg Enoxaparin Sodium (Lovenox) 30 mg SC DAILY [facility] Last Admin: 03/16/18 11:59 Dose: 30 mg Folic Acid (Folic Acid) 1 mg PO DAILY [facility] Last Admin: 03/16/18 12:00 Dose: 1 mg Ceftriaxone Sodium 1 gm/ (Sodium Chloride) 100 mls @ 100 mls/hr IVPB Q24H [facility]; Protocol Last Admin: 03/16/18 13:50 Dose: 100 mls/hr Metronidazole (Flagyl) 500 mg in 100 mls @ 100 mls/hr IVPB Q8H [facility]; Protocol Last Admin: 03/16/18 21:32 Dose: 100 mls/hr Propranolol HCl (Inderal) 10 mg PO BID [facility] Last Admin: 03/16/18 21:34 Dose: Not Given Tiotropium [place] (Spiriva) 18 mcg INH RQ24 [facility] Last Admin: 03/16/18 07:59 Dose: 18 mcg - Labs Labs: 03/16/18 07:47 03/16/18 07:47
[2018-03-17] MEDS: metroNIDAZOLE IV 500 mg/100 ml 500 MG/100 ML BAG IVPB SCH ×3 (05:34→21:33)
[2018-03-17] MEDS: Tiotropium 18 mcg Cap For Inhalation INH SCH (07:02)
[2018-03-17 07:31] LABS: BASO % 0.7 % (0.0-2.0); EOS # 0.1 K/uL (0.0-0.7); EOS % 3.2 % (0.0-4.0); HEMOGLOBIN 11.6 g/dL (12.0-18.0); LYMPH % 25.6 % (20.0-40.0); MEAN CELL VOLUME 89.4 fL (80.0-94.0); MEAN CORPUSCULAR HEMOGLOBIN 29.8 pg (27.0-31.0); MEAN CORPUSCULAR HGB CONC 33.4 g/dL (33.0-37.0); MEAN PLATELET VOLUME 9.5 fL (7.2-11.7); MONO # 0.5 K/uL (0.0-0.8); MONO % 12.4 % (0.0-10.0); NEUT # 2.2 K/uL (1.8-7.0); NEUT % 58.1 % (50.0-75.0); NRBC % 0.1 % (0.0-2.0); RBC 3.9 Mil/uL (4.40-5.90); RED CELL DISTRIBUTION WIDTH 15.7 % (11.5-14.5); WHITE BLOOD COUNT 3.8 K/uL (4.8-10.8)
[2018-03-17 08:40] LABS: BLOOD UREA NITROGEN 4 mg/dL (9-20); CALCIUM 8.1 mg/dl (8.6-10.4); GFR NON-AFRICAN AMERICAN > 60
[2018-03-17] MEDS: Enoxaparin 30 mg Syringe SC SCH (09:18)
--- NOTE | 2018-03-17 22:56 | CP.PCM.PN ---
Subjective - Subjective Subjective: dictated Objective - Vital Signs/Intake and Output Vital Signs (last 24 hours): Temp Pulse Resp BP Pulse Ox 98.6 F 73 20 119/78 100 03/17/18 15:56 03/17/18 15:56 03/17/18 15:56 03/17/18 15:56 03/17/18 15:56 Intake and Output: 03/17/18 03/18/18 18:59 06:59 Intake Total 400 300 Output Total 1000 Balance -600 300 - Medications Medications: Current Medications Amlodipine Besylate (Norvasc) 5 mg PO DAILY [facility] Last Admin: 03/17/18 09:18 Dose: 5 mg Enoxaparin Sodium (Lovenox) 30 mg SC DAILY [facility] Last Admin: 03/17/18 09:18 Dose: 30 mg Folic Acid (Folic Acid) 1 mg PO DAILY [facility] Last Admin: 03/17/18 09:18 Dose: 1 mg Ceftriaxone Sodium 1 gm/ (Sodium Chloride) 100 mls @ 100 mls/hr IVPB Q24H [facility]; Protocol Last Admin: 03/17/18 12:33 Dose: 100 mls/hr Metronidazole (Flagyl) 500 mg in 100 mls @ 100 mls/hr IVPB Q8H [facility]; Protocol Last Admin: 03/17/18 21:33 Dose: 100 mls/hr Propranolol HCl (Inderal) 10 mg PO BID [facility] Last Admin: 03/17/18 17:39 Dose: 10 mg Tiotropium [place] (Spiriva) 18 mcg INH RQ24 [facility] Last Admin: 03/17/18 07:02 Dose: 18 mcg - Labs Labs: 03/17/18 07:03 03/17/18 07:03
--- NOTE | 2018-03-18 03:13 | PN ---
DATE: 03/17/2018 SUBJECTIVE: The patient, Eliu Frey, is feeling better. He denies any nausea or vomiting. He is tolerating diet. He is afebrile. No shortness of breath. He has bowel movements. PHYSICAL EXAMINATION: VITAL SIGNS: Blood pressure 116/70, pulse rate of 91, respiratory rate 20, temperature 98.6. LUNGS: Clear. CARDIOVASCULAR SYSTEM: S1 and S2 are regular. ABDOMEN: Soft, nontender. Bowel sounds are positive. ASSESSMENT: 1. Intestinal obstruction, improving. 2. Hypertension. 3. Dehydration. 4. Anemia. PLAN: Discontinue Norvasc. Continue current medication. Monitor the patient. Walt Schulz MD
[2018-03-18] MEDS: metroNIDAZOLE IV 500 mg/100 ml 500 MG/100 ML BAG IVPB SCH ×2 (05:52→15:30)
[2018-03-18] MEDS: Tiotropium 18 mcg Cap For Inhalation INH SCH (07:00)
[2018-03-18] MEDS: Enoxaparin 30 mg Syringe SC SCH (10:05)
--- NOTE | 2018-03-18 13:32 | CP.PCM.PN ---
Subjective - Date & Time of Evaluation Date of Evaluation: 03/18/18 Time of Evaluation: 11:25 - Subjective Subjective: Patient seen today, denies any abdominal pain, N/V , + stool , tolerated liquid diet will advanced diet labs and vss reviewed - stable Objective - Vital Signs/Intake and Output Vital Signs (last 24 hours): Temp Pulse Resp BP Pulse Ox 98.7 F 86 20 132/82 97 03/18/18 08:26 03/18/18 08:26 03/18/18 08:26 03/18/18 08:26 03/18/18 08:26 Intake and Output: 03/18/18 03/18/18 06:59 18:59 Intake Total 580 Balance 580 - Medications Medications: Current Medications Enoxaparin Sodium (Lovenox) 30 mg SC DAILY [facility] Last Admin: 03/18/18 10:05 Dose: 30 mg Folic Acid (Folic Acid) 1 mg PO DAILY [facility] Last Admin: 03/18/18 10:05 Dose: 1 mg Ceftriaxone Sodium 1 gm/ (Sodium Chloride) 100 mls @ 100 mls/hr IVPB Q24H [facility]; Protocol Last Admin: 03/17/18 12:33 Dose: 100 mls/hr Metronidazole (Flagyl) 500 mg in 100 mls @ 100 mls/hr IVPB Q8H [facility]; Protocol Last Admin: 03/18/18 05:52 Dose: 100 mls/hr Propranolol HCl (Inderal) 10 mg PO BID [facility] Last Admin: 03/18/18 10:04 Dose: 10 mg Tiotropium [place] (Spiriva) 18 mcg INH RQ24 [facility] Last Admin: 03/18/18 07:00 Dose: 18 mcg - Labs Labs: 03/17/18 07:03 03/17/18 07:03 Assessment and Plan - Assessment and Plan (Free Text) Assessment: A/P 58M with PMH of schizophrenia ,severe constipation and PSH who presented to ED from alf with abdominal distention and abdominal pain admitted with Small bowel obstruction, Abdominal distension surgery consulted for small bowel obstruction ,given go lytely and fleet enema and pt had multiple BM and no plans for surgical intervention recommends to d/c with stool softeners and colonic stimulants Patient tolerated regular diet D/W Dr. Schulz cleared fro discharge back to alf
[2018-03-18 16:10] VITALS: BP 105/70; PULSE 67; TEMP 98.5; O2SAT 99
[2018-03-18] MEDS ORDERED: Pneumococcal 23-Valent Vaccine SC ONE (16:20)
[2018-03-18] MEDS ORDERED: Influenza Vaccine 60 MCG/0.5 ML SYR (3 yr & up) IM ONE (16:20)
--- NOTE | 2018-03-18 21:48 | CP.PCM.DIS ---
Provider - Provider Date of Admission: 03/15/18 12:44 Attending physician: Walt Schulz MD Hospital Course - Lab Results Lab Results: Micro Results 03/15/18 12:50 Blood Blood Culture - Preliminary NO GROWTH AFTER 3 DAYS 03/15/18 13:20 Blood Blood Culture - Preliminary NO GROWTH AFTER 3 DAYS 03/15/18 12:41 Urine Urine Culture - Final 10-50,000 CFU/ML. MULTIPLE SPECIES. PROBABLE CONTAMINATION. Most Recent Lab Values WBC 3.8 K/uL (4.8-10.8) L 03/17/18 07:03 RBC 3.90 Mil/uL (4.40-5.90) L 03/17/18 07:03 Hgb 11.6 g/dL (12.0-18.0) L 03/17/18 07:03 Hct 34.9 % (35.0-51.0) L 03/17/18 07:03 MCV 89.4 fL (80.0-94.0) 03/17/18 07:03 MCH 29.8 pg (27.0-31.0) 03/17/18 07:03 MCHC 33.4 g/dL (33.0-37.0) 03/17/18 07:03 RDW 15.7 % (11.5-14.5) H 03/17/18 07:03 Plt Count 148 K/uL (130-400) 03/17/18 07:03 MPV 9.5 fL (7.2-11.7) 03/17/18 07:03 Neut % (Auto) 58.1 % (50.0-75.0) 03/17/18 07:03 Lymph % (Auto) 25.6 % (20.0-40.0) 03/17/18 07:03 [place] % (Auto) 12.4 % (0.0-10.0) H 03/17/18 07:03 Eos % (Auto) 3.2 % (0.0-4.0) 03/17/18 07:03 Baso % (Auto) 0.7 % (0.0-2.0) 03/17/18 07:03 Neut # (Auto) 2.2 K/uL (1.8-7.0) 03/17/18 07:03 Lymph # (Auto) 1.0 K/uL (1.0-4.3) 03/17/18 07:03 [place] # (Auto) 0.5 K/uL (0.0-0.8) 03/17/18 07:03 Eos # (Auto) 0.1 K/uL (0.0-0.7) 03/17/18 07:03 Baso # (Auto) 0.0 K/uL (0.0-0.2) 03/17/18 07:03 Sodium 139 mmol/L (132-148) 03/17/18 07:03 Potassium 3.6 mmol/L (3.6-5.2) 03/17/18 07:03 Chloride 104 mmol/L (98-107) 03/17/18 07:03 Carbon Dioxide 26 mmol/L (22-30) 03/17/18 07:03 Anion Gap 13 (10-20) 03/17/18 07:03 BUN 4 mg/dL (9-20) L 03/17/18 07:03 Creatinine 0.7 mg/dL (0.8-1.5) L 03/17/18 07:03 Est GFR ( Amer) > 60 03/17/18 07:03 Est GFR (Non-Af Amer) > 60 03/17/18 07:03 POC Glucose (mg/dL) 84 mg/dL (65-110) 03/18/18 11:16 Random Glucose 91 mg/dL (75-110) 03/17/18 07:03 Calcium 8.1 mg/dl (8.6-10.4) L 03/17/18 07:03 Phosphorus 2.9 mg/dL (2.5-4.5) 03/16/18 07:47 Magnesium 1.9 mg/dL (1.6-2.3) 03/16/18 07:47 Total Bilirubin 0.5 mg/dL (0.2-1.3) 03/15/18 10:03 AST 17 U/L (17-59) 03/15/18 10:03 ALT 17 U/L (21-72) L D 03/15/18 10:03 Alkaline Phosphatase 73 U/L (38-126) 03/15/18 10:03 Total Protein 6.3 g/dL (6.3-8.3) 03/15/18 10:03 Albumin 3.6 g/dL (3.5-5.0) 03/15/18 10:03 Globulin 2.8 gm/dL (2.2-3.9) 03/15/18 10:03 Albumin/Globulin Ratio 1.3 (1.0-2.1) 03/15/18 10:03 Lipase 25 U/L (23-300) 03/15/18 10:03 Urine Color Yellow (YELLOW) 03/15/18 12:41 Urine Clarity Clear (Clear) 03/15/18 12:41 Urine pH 5.0 (5.0-8.0) 03/15/18 12:41 Ur Specific [place] 1.020 (1.003-1.030) 03/15/18 12:41 Urine Protein Negative mg/dL (NEGATIVE) 03/15/18 12:41 Urine Glucose (UA) Normal mg/dL (Normal) 03/15/18 12:41 Urine Ketones Trace mg/dL (NEGATIVE) 03/15/18 12:41 Urine Blood Negative (NEGATIVE) 03/15/18 12:41 Urine Nitrate Negative (NEGATIVE) 03/15/18 12:41 Urine Bilirubin Negative (NEGATIVE) 03/15/18 12:41 Urine Urobilinogen 2.0 mg/dL (0.2-1.0) 03/15/18 12:41 Ur Leukocyte Esterase Neg [place]/uL (Negative) 03/15/18 12:41 Urine WBC (Auto) < 1 /hpf (0-5) 03/15/18 12:41 Urine RBC (Auto) 3 /hpf (0-3) 03/15/18 12:41 Ur Squamous Epith Cells < 1 /hpf (0-5) 03/15/18 12:41 Stool Occult Blood Negative (NEGATIVE) 03/15/18 13:31 Discharge Exam - Head Exam Head Exam: ATRAUMATIC, NORMOCEPHALIC Discharge Plan - Discharge Medications Prescriptions: Lactulose [Enulose] 20 gm PO HS #500 ml - Follow Up Plan Condition: FAIR Disposition: HOME/ ROUTINE Instructions: Small Bowel Obstruction (DC), Lactulose
== END 2018-03-18 20:15 | disposition home or self-care (01) | DRG 390 ==
LOC: C.ER 08:48 → C.9E 12:44 → C.3T 13:08
PROVIDERS: ADMIT Internal Medicine; ATTEND Internal Medicine
DX: K56.609 Unspecified intestinal obstruction, unspecified as to partial versus complete obstruction (principal); E86.0 Dehydration; D64.9 Anemia, unspecified; I10 Essential (primary) hypertension; J45.909 Unspecified asthma, uncomplicated; K56.7 Ileus, unspecified; F17.210 Nicotine dependence, cigarettes, uncomplicated; F20.9 Schizophrenia, unspecified